=== PATIENT | female | born 1945 | race Caucasian/White ===

== ENCOUNTER 2016-07-29 21:53 | Emergency (ER) | payer MEDICARE, MEDICAID ==
[~2016-07-29] VITALS: Ht 162.6 cm; Wt 75.0 kg
[~2016-07-29 21:53] MED LIST: BENZ0.5T PO; DIVA500T17 PO; ERGO500017 PO; ESCI10TA PO; FERR325T20 PO; HYDR50TA13 PO; LEVO75TA5 PO; LITH300T3 PO; LITH450T PO; LORA0.5T PO; OLAN20TA7 PO; RANI-276 PO; ZOLP10TA PO; ZOLP10TA5 PO
[2016-07-29 21:59] VITALS: BP 126/88
== END 2016-07-30 00:25 | disposition home or self-care (01) ==
LOC: ED 23:59
DX: M25.572 Pain in left ankle and joints of left foot (principal); K21.9 Gastro-esophageal reflux disease without esophagitis; E07.9 Disorder of thyroid, unspecified; I25.10 Atherosclerotic heart disease of native coronary artery without angina pectoris; F20.0 Paranoid schizophrenia; F31.9 Bipolar disorder, unspecified; X50.1XXA Overexertion from prolonged static or awkward postures, initial encounter; Y93.89 Activity, other specified; Y99.8 Other external cause status; Y92.488 Other paved roadways as the place of occurrence of the external cause
CPT/HCPCS: 99284

== ENCOUNTER → 2016-08-01 | Outpatient (CLI) | payer MEDICARE, MEDICAID | END | disposition home or self-care (01) | LOC: CFH 10:35 | PROVIDERS: ATTEND Internal Medicine Cardiovascular Disease | DX: R01.1 Cardiac murmur, unspecified (principal); Z85.828 Personal history of other malignant neoplasm of skin; Z87.891 Personal history of nicotine dependence | CPT/HCPCS: 93306 ==

== ENCOUNTER 2016-08-14 11:46 | Emergency (ER) | payer MEDICARE, MEDICAID ==
[~2016-08-14] VITALS: Ht 162.6 cm; Wt 73.8 kg
[2016-08-14 11:48] VITALS: BP 144/95
[2016-08-14] MEDS ORDERED: LORazepam 1MG TABLET PO ONE (12:30)
[2016-08-14 12:44] LABS: ASPARTATE AMINO TRANSFERASE 11 U/L (15-37); BLOOD UREA NITROGEN 13 mg/dL (7-18)
[2016-08-14 12:56] LABS: ACETAMINOPHEN < 2 mcg/mL (10-30)
[2016-08-14] MEDS ORDERED: LORazepam 1MG TABLET ONE (13:22)
[2016-08-14 14:28] LABS: DAU SCREEN DISCLAIMER
== END 2016-08-14 17:36 | disposition left against medical advice (07) ==
LOC: ED 14:17
DX: F41.1 Generalized anxiety disorder (principal); F22 Delusional disorders; K21.9 Gastro-esophageal reflux disease without esophagitis; F31.9 Bipolar disorder, unspecified; F25.9 Schizoaffective disorder, unspecified; E03.9 Hypothyroidism, unspecified
CPT/HCPCS: 36415; 80053; 80307; 80329; 81003; 84443; 85025; 99284; G0480

== ENCOUNTER 2016-11-07 17:56 | Emergency (ER) | payer MEDICARE, MEDICAID ==
[~2016-11-07] VITALS: Ht 162.6 cm; Wt 74.4 kg
[2016-11-07] MEDS ORDERED: ASPIRIN 81 MG TABLET CHEW PO ONE (18:30)
[2016-11-07 19:07] LABS: BLOOD UREA NITROGEN 13 mg/dL (7-18)
[2016-11-07 19:16] LABS: ACETAMINOPHEN < 2 mcg/mL (10-30); IS PT STATUS REG ER OR PRE ER? YES
[2016-11-07] MEDS ORDERED: ASPIRIN 81 MG TABLET CHEW ONE ×2 (19:48→19:57)
[2016-11-07 19:49] LABS: DAU SCREEN DISCLAIMER
[2016-11-08] MEDS ORDERED: HALOPERIDOL 5 MG/ML IM PRN (02:30)
[2016-11-08] MEDS ORDERED: BENZTROPINE 1 MG TABLET PO PRN (02:30)
[2016-11-08] MEDS ORDERED: LORazepam 1MG TABLET PO PRN (02:30)
[2016-11-08] MEDS ORDERED: ONDANSETRON ODT 4 MG PO PRN (02:30)
[2016-11-08] MEDS ORDERED: LORazepam 0.5MG TABLET PO PRN (04:30)
[2016-11-08] MEDS: FAMOTIDINE 20 MG TABLET PO SCH ×2 (09:00→21:15)
[2016-11-08] MEDS: LEVOTHYROXINE 75 MCG TABLET PO SCH (09:00)
[2016-11-08] MEDS: BENZTROPINE 1 MG TABLET PO SCH ×2 (09:00→21:14)
[2016-11-08] MEDS ORDERED: NICOTINE 14MG/24 HR PATCH.TD24 ONE (15:53)
[2016-11-08] MEDS ORDERED: NICOTINE 14MG/24 HR PATCH.TD24 TD ONE (16:00)
[2016-11-08] MEDS ORDERED: FAMOTIDINE 20 MG TABLET ONE (20:39)
[2016-11-08] MEDS ORDERED: OLANZAPINE 10 MG TABLET PO SCH (21:00)
[2016-11-08] MEDS ORDERED: DIVALPROEX 500 MG TAB.ER.24H PO SCH (21:00)
[2016-11-09] MEDS: TEMPLATE NON-FORMULARY MED. (Escitalopram Oxalate** 10 MG) PO SCH ×2 (06:59→07:57)
[2016-11-09] MEDS: FAMOTIDINE 20 MG TABLET PO SCH (07:57)
[2016-11-09] MEDS: BENZTROPINE 1 MG TABLET PO SCH (07:58)
[2016-11-09] MEDS: LEVOTHYROXINE 75 MCG TABLET PO SCH (07:58)
[2016-11-09 08:42] VITALS: BP 123/80
[2016-11-09] MEDS ORDERED: OLANZAPINE 10 MG TABLET PO PRN (18:00)
[2016-11-09] MEDS ORDERED: OLAN10TA3 PO (18:27)
== END 2016-11-09 18:43 | disposition home or self-care (01) ==
LOC: ED 22:46 → UNDOADMOB 11-08 01:54 → EDIP 11-08 01:54 → ED 11-09 18:43
DX: R07.89 Other chest pain (principal); F32.9 Major depressive disorder, single episode, unspecified; F23 Brief psychotic disorder; F41.1 Generalized anxiety disorder; K21.9 Gastro-esophageal reflux disease without esophagitis; I25.10 Atherosclerotic heart disease of native coronary artery without angina pectoris; E03.9 Hypothyroidism, unspecified; G62.9 Polyneuropathy, unspecified; F20.9 Schizophrenia, unspecified
CPT/HCPCS: 36415; 71010; 80048; 80307; 80329; 81003; 82040; 84484; 85025; 93005; 99285; G0480

== ENCOUNTER 2017-01-30 14:32 | Observation (INO) | payer MEDICARE, MEDICAID ==
[~2017-01-30] VITALS: Ht 162.6 cm; Wt 74.0 kg
[~2017-01-30 14:32] MED LIST changes: +FERR325T18 PO; -FERR325T20 PO; +OLAN10TA3 PO
[2017-01-30 15:45] LABS: HEMATOCRIT 44.6 % (34.6-47.8); HEMOGLOBIN 15.3 g/dL (11.7-16.4); WHITE BLOOD COUNT 6.6 x10^3/uL (3.4-10)
[2017-01-30 15:54] LABS: BLOOD UREA NITROGEN 18 mg/dL (7-18)
[2017-01-30 15:55] LABS: ACETAMINOPHEN < 2 mcg/mL (10-30)
[2017-01-30 16:32] LABS: DAU SCREEN DISCLAIMER
[2017-01-30] MEDS ORDERED: ACETAMINOPHEN 325 MG TABLET PO PRN (21:30)
[2017-01-30] MEDS ORDERED: DOCUSATE 100 MG CAPSULE PO PRN (21:30)
[2017-01-30] MEDS ORDERED: OLANZAPINE 10 MG TABLET PO PRN (22:00)
[2017-01-31] MEDS: ASPIRIN 81 MG TABLET EC PO SCH (13:37)
[2017-01-31 13:41] LABS: IS PT STATUS REG ER OR PRE ER? NO
[2017-01-31] MEDS: NICOTINE 21 MG/24 HR PATCH.TD24 TD SCH (13:43)
[2017-01-31 19:49] VITALS: BP 115/76
[2017-02-01] MEDS: ASPIRIN 81 MG TABLET EC PO SCH (06:31)
[2017-02-01 08:00] VITALS: BP 124/77
[2017-02-01] MEDS ORDERED: LORazepam 0.5MG TABLET PO PRN (12:30)
[2017-02-01] MEDS ORDERED: LEVOTHYROXINE 75 MCG TABLET PO SCH (12:30)
[2017-02-01] MEDS ORDERED: ERGOCALCIFEROL 50,000 UNIT CAPSULE PO SCH (13:00)
[2017-02-01] MEDS: TEMPLATE NON-FORMULARY MED. (Escitalopram Oxalate** 10 MG) PO SCH (13:00)
[2017-02-01] MEDS: NICOTINE 21 MG/24 HR PATCH.TD24 TD SCH (14:46)
[2017-02-01] MEDS: LORazepam 0.5MG TABLET PO PRN ×2 (14:46→21:49)
[2017-02-01 20:00] VITALS: BP 126/87
[2017-02-01] MEDS ORDERED: BENZTROPINE 1 MG TABLET PO SCH (21:00)
[2017-02-01] MEDS: OLANZAPINE 10 MG TABLET PO SCH (21:49)
[2017-02-01] MEDS: DIVALPROEX 500 MG TAB.ER.24H PO SCH (21:49)
[2017-02-02] MEDS: LEVOTHYROXINE 75 MCG TABLET PO SCH ×2 (05:50→09:00)
[2017-02-02] MEDS: ASPIRIN 81 MG TABLET EC PO SCH (05:50)
[2017-02-02 07:30] VITALS: BP 109/75
[2017-02-02] MEDS: TEMPLATE NON-FORMULARY MED. (Escitalopram Oxalate** 10 MG) PO SCH (07:30)
[2017-02-02] MEDS: BENZTROPINE 1 MG TABLET PO SCH ×2 (08:48→21:48)
[2017-02-02] MEDS: LORazepam 0.5MG TABLET PO PRN ×2 (11:13→21:49)
[2017-02-02] MEDS: NICOTINE 21 MG/24 HR PATCH.TD24 TD SCH (14:24)
[2017-02-02 20:00] VITALS: BP 93/68
[2017-02-02] MEDS: OLANZAPINE 10 MG TABLET PO SCH (21:48)
[2017-02-02] MEDS: DIVALPROEX 500 MG TAB.ER.24H PO SCH (21:49)
[2017-02-03] MEDS: ASPIRIN 81 MG TABLET EC PO SCH (06:06)
[2017-02-03 07:26] VITALS: BP 124/88
[2017-02-03] MEDS: TEMPLATE NON-FORMULARY MED. (Escitalopram Oxalate** 10 MG) PO SCH (07:30)
[2017-02-03] MEDS: LEVOTHYROXINE 75 MCG TABLET PO SCH (08:28)
[2017-02-03] MEDS: BENZTROPINE 1 MG TABLET PO SCH ×2 (08:28→20:30)
[2017-02-03] MEDS ORDERED: TEMPLATE NON-FORMULARY MED. (Escitalopram Oxalate** 10 MG) HOMEMEDPO SCH (10:36)
[2017-02-03] MEDS: LORazepam 0.5MG TABLET PO PRN ×2 (12:27→20:31)
[2017-02-03] MEDS: NICOTINE 21 MG/24 HR PATCH.TD24 TD SCH (14:11)
[2017-02-03] MEDS ORDERED: PLEASE ENTER WEIGHT MC SCH (18:30)
[2017-02-03 19:29] VITALS: BP 102/71
[2017-02-03] MEDS ORDERED: DOCUSATE 100 MG CAPSULE PO PRN (20:30)
[2017-02-03] MEDS: DIVALPROEX 500 MG TAB.ER.24H PO SCH (20:30)
[2017-02-03] MEDS: OLANZAPINE 10 MG TABLET PO SCH (20:30)
[2017-02-03] MEDS ORDERED: ACETAMINOPHEN 325 MG TABLET PO PRN (20:30)
[2017-02-03] MEDS ORDERED: OLANZAPINE 10 MG TABLET PO PRN (20:30)
[2017-02-04] MEDS: ASPIRIN 81 MG TABLET EC PO SCH (06:27)
[2017-02-04] MEDS: LEVOTHYROXINE 75 MCG TABLET PO SCH (06:28)
[2017-02-04] MEDS: TEMPLATE NON-FORMULARY MED. (Escitalopram Oxalate** 20 MG) HOMEMEDPO SCH (07:30)
[2017-02-04 08:11] VITALS: BP 116/74
[2017-02-04] MEDS: BENZTROPINE 1 MG TABLET PO SCH ×2 (08:32→20:29)
[2017-02-04] MEDS: LORATADINE 10 MG TABLET PO SCH (08:32)
[2017-02-04] MEDS ORDERED: LORATADINE 10 MG TABLET PO SCH (09:00)
[2017-02-04] MEDS: NICOTINE 21 MG/24 HR PATCH.TD24 TD SCH (15:02)
[2017-02-04] MEDS: LORazepam 0.5MG TABLET PO PRN ×2 (15:08→22:31)
[2017-02-04] MEDS: DIVALPROEX 500 MG TAB.ER.24H PO SCH (20:28)
[2017-02-04] MEDS: OLANZAPINE 10 MG TABLET PO SCH (20:29)
[2017-02-04 20:38] VITALS: BP 122/83
[2017-02-05] MEDS: LEVOTHYROXINE 75 MCG TABLET PO SCH (06:01)
[2017-02-05] MEDS: ASPIRIN 81 MG TABLET EC PO SCH (06:03)
[2017-02-05 07:22] VITALS: BP 119/87
[2017-02-05] MEDS: TEMPLATE NON-FORMULARY MED. (Escitalopram Oxalate** 20 MG) HOMEMEDPO SCH (07:30)
[2017-02-05] MEDS: BENZTROPINE 1 MG TABLET PO SCH ×2 (07:54→21:40)
[2017-02-05] MEDS: LORATADINE 10 MG TABLET PO SCH (07:54)
[2017-02-05] MEDS: NICOTINE 21 MG/24 HR PATCH.TD24 TD SCH (14:11)
[2017-02-05] MEDS: LORazepam 0.5MG TABLET PO PRN ×2 (14:15→21:40)
[2017-02-05 19:19] VITALS: BP 100/64
[2017-02-05] MEDS: DIVALPROEX 500 MG TAB.ER.24H PO SCH (21:40)
[2017-02-05] MEDS: OLANZAPINE 10 MG TABLET PO SCH (21:40)
[2017-02-06] MEDS: ASPIRIN 81 MG TABLET EC PO SCH (06:25)
[2017-02-06] MEDS: LEVOTHYROXINE 75 MCG TABLET PO SCH (06:25)
[2017-02-06] MEDS: TEMPLATE NON-FORMULARY MED. (Escitalopram Oxalate** 20 MG) HOMEMEDPO SCH (07:30)
[2017-02-06 08:00] VITALS: BP 109/76
[2017-02-06] MEDS: LORATADINE 10 MG TABLET PO SCH (08:18)
[2017-02-06] MEDS: BENZTROPINE 1 MG TABLET PO SCH ×2 (08:18→20:55)
[2017-02-06] MEDS: NICOTINE 21 MG/24 HR PATCH.TD24 TD SCH (14:16)
[2017-02-06] MEDS: LORazepam 0.5MG TABLET PO PRN ×2 (14:24→22:33)
[2017-02-06 20:07] VITALS: BP 90/57
[2017-02-06] MEDS: DIVALPROEX 500 MG TAB.ER.24H PO SCH (20:55)
[2017-02-06] MEDS: OLANZAPINE 10 MG TABLET PO SCH (20:56)
[2017-02-07] MEDS: ASPIRIN 81 MG TABLET EC PO SCH (06:26)
[2017-02-07] MEDS: LEVOTHYROXINE 75 MCG TABLET PO SCH (06:26)
[2017-02-07 07:19] VITALS: BP 113/80
[2017-02-07] MEDS: TEMPLATE NON-FORMULARY MED. (Escitalopram Oxalate** 20 MG) HOMEMEDPO SCH (07:30)
[2017-02-07] MEDS: BENZTROPINE 1 MG TABLET PO SCH (07:55)
[2017-02-07] MEDS: LORATADINE 10 MG TABLET PO SCH (07:55)
[2017-02-07] MEDS: NICOTINE 21 MG/24 HR PATCH.TD24 TD SCH (14:00)
== END 2017-02-07 15:23 | disposition home or self-care (01) ==
LOC: ED 18:07 → EDIP 20:40 → 3E 01-31 10:05
PROVIDERS: ADMIT Hospitalist; ATTEND Hospitalist
DX: R45.851 Suicidal ideations (principal); F31.9 Bipolar disorder, unspecified; I25.10 Atherosclerotic heart disease of native coronary artery without angina pectoris; E03.9 Hypothyroidism, unspecified; F20.0 Paranoid schizophrenia; F17.210 Nicotine dependence, cigarettes, uncomplicated; K21.9 Gastro-esophageal reflux disease without esophagitis; Z82.49 Family history of ischemic heart disease and other diseases of the circulatory system; Z95.5 Presence of coronary angioplasty implant and graft
CPT/HCPCS: 36415; 71010; 80048; 80307; 80329; 82040; 84439; 84443; 84484; 85025; 93005; 99285; G0378; G0479; G0480

== ENCOUNTER 2017-03-23 15:04 | Emergency (ER) | payer MEDICARE, MEDICAID ==
[2017-03-23 16:02] LABS: DAU SCREEN DISCLAIMER
[2017-03-23 16:18] LABS: HEMATOCRIT 43.1 % (34.6-47.8); HEMOGLOBIN 14.7 g/dL (11.7-16.4); WHITE BLOOD COUNT 8.2 x10^3/uL (3.4-10)
[2017-03-23 16:25] LABS: BLOOD UREA NITROGEN 14 mg/dL (7-18)
[2017-03-23 16:27] LABS: ACETAMINOPHEN < 2 mcg/mL (10-30)
[2017-03-23 23:45] VITALS: BP 130/88
== END 2017-03-23 23:46 | disposition home or self-care (01) ==
LOC: ED 18:10
DX: F43.21 Adjustment disorder with depressed mood (principal); K21.9 Gastro-esophageal reflux disease without esophagitis; E03.9 Hypothyroidism, unspecified; I25.10 Atherosclerotic heart disease of native coronary artery without angina pectoris
CPT/HCPCS: 36415; 80048; 80307; 80329; 82040; 85025; 99284; G0479; G0480

== ENCOUNTER 2017-04-01 20:37 | Emergency (ER) | payer MEDICARE, MEDICAID ==
[~2017-04-01] VITALS: Ht 162.6 cm; Wt 75.7 kg
[2017-04-01 20:39] VITALS: BP 162/90
== END 2017-04-01 21:39 | disposition home or self-care (01) ==
LOC: ED 21:00
DX: G89.29 Other chronic pain (principal); M79.642 Pain in left hand; M79.641 Pain in right hand; M79.645 Pain in left finger(s); M79.644 Pain in right finger(s); K21.9 Gastro-esophageal reflux disease without esophagitis; E03.9 Hypothyroidism, unspecified; F25.9 Schizoaffective disorder, unspecified; F31.9 Bipolar disorder, unspecified; G62.9 Polyneuropathy, unspecified; I25.10 Atherosclerotic heart disease of native coronary artery without angina pectoris; F20.0 Paranoid schizophrenia
CPT/HCPCS: 99281

== ENCOUNTER 2017-04-10 17:02 | Emergency (ER) | payer MEDICARE, MEDICAID ==
[~2017-04-10] VITALS: Ht 162.6 cm; Wt 74.4 kg
[2017-04-10 18:33] LABS: BASOPHILS # (AUTO) 0.04 x10^3/uL (0-0.1); BASOPHILS % (AUTO) 1 % (0-1); EOSINOPHILS # (AUTO) 0.12 x10^3/uL (0-0.4); EOSINOPHILS % (AUTO) 2 % (1-7); LYMPHOCYTES # (AUTO) 2.29 x10^3/uL (1-3.4); LYMPHOCYTES % (AUTO) 38 % (22-44); MD NO; MEAN CORPUSCULAR HEMOGLOBIN 31.4 pg (27.0-34.8); MEAN CORPUSCULAR HGB CONC 33.8 g/dL (32.4-35.8); MEAN CORPUSCULAR VOLUME 92.7 fL (80-100); MEAN PLATELET VOLUME 7.8 fL (7.4-10.4); MONOCYTES # (AUTO) 0.79 x10^3/uL (0.2-0.8); MONOCYTES % (AUTO) 13 % (2-9); NEUTROPHILS # (AUTO) 2.85 x10^3/uL (1.8-6.8); NEUTROPHILS % (AUTO) 47 % (42-75); PLATELET COUNT 220 x10^3/uL (130-400); RED BLOOD COUNT 4.97 x10^6/uL (3.82-5.3); RED CELL DISTRIBUTION WIDTH 15.2 % (9.6-15.2)
[2017-04-10 18:39] LABS: ALBUMIN 3.3 g/dL (3.4-5.0); ANION GAP 8 mmol/L (5-15); CHLORIDE 110 mmol/L (98-107); CREATININE 1.23 mg/dL (0.55-1.02); SALICYLATE LEVEL 4.9 mg/dL (2.8-20.0)
[2017-04-10 18:46] LABS: ACETAMINOPHEN < 2 mcg/mL (10-30)
[2017-04-10] MEDS ORDERED: ALPR0.25 PO (18:50)
[2017-04-10] MEDS ORDERED: LORA-445 PO (18:51)
[2017-04-10] MEDS ORDERED: BISA5TAB38 PO (18:52)
[2017-04-10] MEDS ORDERED: ESCI5TAB7 PO (18:53)
[2017-04-10 19:12] LABS: AMPHETAMINE SCREEN, URINE Negative (Negative); BARBITURATE SCREEN, URINE Negative (Negative); BENZODIAZEPINE SCREEN, URINE Negative (Negative); CANNABINOID SCREEN, URINE Negative (Negative); COCAINE SCREEN, URINE Negative (Negative); METHADONE SCREEN, URINE Negative (Negative); OPIATE SCREEN, URINE Negative (Negative)
[2017-04-10] MEDS ORDERED: ACETAMINOPHEN 325 MG TABLET PO PRN (21:00)
[2017-04-10] MEDS ORDERED: ONDANSETRON ODT 4 MG PO PRN (21:00)
[2017-04-10] MEDS ORDERED: LORazepam 1MG TABLET PO PRN (21:00)
[2017-04-10] MEDS ORDERED: OLANZAPINE 10 MG TABLET PO PRN (21:00)
[2017-04-10] MEDS ORDERED: ERGOCALCIFEROL 50,000 UNIT CAPSULE PO SCH (21:00)
[2017-04-10] MEDS ORDERED: LORazepam 0.5MG TABLET ONE (22:29)
[2017-04-10] MEDS: DIVALPROEX 500 MG TAB.ER.24H PO SCH (22:50)
[2017-04-10] MEDS: LORazepam 0.5MG TABLET PO SCH (22:50)
[2017-04-10] MEDS: BENZTROPINE 1 MG TABLET PO SCH (22:51)
[2017-04-11] MEDS ORDERED: KETOROLAC 30 MG/1 ML ONE (06:11)
[2017-04-11] MEDS ORDERED: CITALOPRAM 10 MG TABLET PO SCH (09:00)
[2017-04-11] MEDS ORDERED: BISACODYL 5 MG EC TABLET PO SCH (09:00)
[2017-04-11] MEDS ORDERED: LORazepam 0.5MG TABLET ONE (19:17)
[2017-04-11] MEDS: LORazepam 0.5MG TABLET PO SCH ×2 (20:37→21:00)
[2017-04-11] MEDS: BENZTROPINE 1 MG TABLET PO SCH ×2 (20:37→21:00)
[2017-04-11] MEDS: LEVOTHYROXINE 75 MCG TABLET PO SCH (20:37)
[2017-04-12] MEDS: DIVALPROEX 500 MG TAB.ER.24H PO SCH (02:11)
[2017-04-12] MEDS: LEVOTHYROXINE 75 MCG TABLET PO SCH (06:13)
[2017-04-12] MEDS ORDERED: BACITRACIN ZINC OINT 500U/GM, 0.9 GM ONE (07:18)
[2017-04-12] MEDS ORDERED: LORazepam 0.5MG TABLET ONE (08:35)
[2017-04-12] MEDS: LORazepam 0.5MG TABLET PO SCH (08:53)
[2017-04-12] MEDS: BENZTROPINE 1 MG TABLET PO SCH (08:53)
[2017-04-12] MEDS ORDERED: LEXAPRO 5 MG PO SCH (09:00)
[2017-04-12] MEDS ORDERED: NICOTINE 21 MG/24 HR PATCH.TD24 ONE (09:03)
[2017-04-12] MEDS ORDERED: NICOTINE 21 MG/24 HR PATCH.TD24 TD ONE (09:30)
[2017-04-12 10:45] VITALS: BP 116/84
== END 2017-04-12 15:16 ==
LOC: ED 20:10 → UNDOADMOB 20:11 → EDIP 20:11 → ED 20:38
DX: F32.9 Major depressive disorder, single episode, unspecified (principal); F20.9 Schizophrenia, unspecified; E03.9 Hypothyroidism, unspecified; I25.10 Atherosclerotic heart disease of native coronary artery without angina pectoris; K21.9 Gastro-esophageal reflux disease without esophagitis; Z95.5 Presence of coronary angioplasty implant and graft
CPT/HCPCS: 36415; 80048; 80307; 80329; 82040; 84443; 85025; 99285; G0479; G0480

== ENCOUNTER 2018-01-06 19:14 | Emergency (ER) | payer MEDICARE, MEDICAID ==
[~2018-01-06] VITALS: Ht 162.6 cm; Wt 74.1 kg
[~2018-01-06 19:14] MED LIST changes: +ALPR0.25 PO; -BENZ0.5T PO; +BENZ0.5T35 PO; +BISA5TAB38 PO; +ESCI5TAB7 PO; +LORA-445 PO
[2018-01-06] MEDS ORDERED: KETOROLAC 30 MG/1 ML ONE (19:42)
[2018-01-06] MEDS ORDERED: ASPIRIN 81 MG TABLET CHEW ONE (19:42)
[2018-01-06] MEDS ORDERED: ASPIRIN 81 MG TABLET CHEW PO ONE (20:00)
[2018-01-06] MEDS ORDERED: KETOROLAC 30 MG/1 ML IVPush ONE (20:00)
[2018-01-06] MEDS ORDERED: SODIUM CHLORIDE FLUSH 10ML SYR IVF ONE (20:00)
[2018-01-06 20:14] LABS: BASOPHILS # (AUTO) 0.04 x10^3/uL (0-0.1); BASOPHILS % (AUTO) 1 % (0-1); EOSINOPHILS # (AUTO) 0.08 x10^3/uL (0-0.4); EOSINOPHILS % (AUTO) 1 % (1-7); LYMPHOCYTES # (AUTO) 2.37 x10^3/uL (1-3.4); LYMPHOCYTES % (AUTO) 32 % (22-44); MD NO; MEAN CORPUSCULAR HEMOGLOBIN 31.7 pg (27.0-34.8); MEAN CORPUSCULAR HGB CONC 34.2 g/dL (32.4-35.8); MEAN CORPUSCULAR VOLUME 92.4 fL (80-100); MEAN PLATELET VOLUME 7.4 fL (7.4-10.4); MONOCYTES # (AUTO) 0.84 x10^3/uL (0.2-0.8); MONOCYTES % (AUTO) 12 % (2-9); NEUTROPHILS # (AUTO) 3.99 x10^3/uL (1.8-6.8); NEUTROPHILS % (AUTO) 55 % (42-75); PLATELET COUNT 196 x10^3/uL (130-400); RED BLOOD COUNT 4.65 x10^6/uL (3.82-5.3); RED CELL DISTRIBUTION WIDTH 16.2 % (9.6-15.2)
[2018-01-06 20:26] LABS: ALANINE AMINOTRANSFERASE 16 U/L (12-78); ALBUMIN 3.2 g/dL (3.4-5.0); ANION GAP 10 mmol/L (5-15); CHLORIDE 106 mmol/L (98-107); CREATININE 1.12 mg/dL (0.55-1.02)
[2018-01-06 20:30] LABS: ALKALINE PHOSPHATASE 83 U/L (45-117); BILIRUBIN,TOTAL 0.5 mg/dL (0.2-1.0); TOTAL PROTEIN 6.7 g/dL (6.4-8.2); TROPONIN I < 0.015 ng/mL (0.000-0.045)
[2018-01-06 21:22] VITALS: BP 113/74
== END 2018-01-06 21:24 | disposition left against medical advice (07) ==
LOC: ED 19:46
DX: R07.2 Precordial pain (principal); F17.200 Nicotine dependence, unspecified, uncomplicated; K21.9 Gastro-esophageal reflux disease without esophagitis; F31.9 Bipolar disorder, unspecified; F20.9 Schizophrenia, unspecified; E03.9 Hypothyroidism, unspecified; Z88.8 Allergy status to other drugs, medicaments and biological substances; Z88.1 Allergy status to other antibiotic agents
CPT/HCPCS: 36415; 71045; 80053; 84484; 85025; 85379; 93005; 96374; 99285; J1885

== ENCOUNTER 2018-01-20 18:20 | Emergency (ER) | payer MEDICARE, MEDICAID ==
[~2018-01-20] VITALS: Ht 162.6 cm; Wt 74.0 kg
[2018-01-20 18:25] VITALS: BP 125/81
== END 2018-01-20 19:27 | disposition home or self-care (01) ==
LOC: ED 19:21
DX: G89.11 Acute pain due to trauma (principal); M25.561 Pain in right knee; E11.9 Type 2 diabetes mellitus without complications; K21.9 Gastro-esophageal reflux disease without esophagitis; I25.10 Atherosclerotic heart disease of native coronary artery without angina pectoris; I25.2 Old myocardial infarction; E03.9 Hypothyroidism, unspecified; F31.9 Bipolar disorder, unspecified; F20.0 Paranoid schizophrenia; F17.210 Nicotine dependence, cigarettes, uncomplicated; X50.1XXA Overexertion from prolonged static or awkward postures, initial encounter; Y93.89 Activity, other specified; Y99.8 Other external cause status; Y92.89 Other specified places as the place of occurrence of the external cause
CPT/HCPCS: 99283

== ENCOUNTER 2018-02-12 21:02 | Emergency (ER) | payer MEDICARE, MEDICAID ==
[~2018-02-12] VITALS: Ht 162.6 cm; Wt 70.0 kg
[2018-02-12 21:02] VITALS: BP 150/73
== END 2018-02-12 21:34 | disposition home or self-care (01) ==
LOC: ED 21:28
DX: M79.671 Pain in right foot (principal); E11.9 Type 2 diabetes mellitus without complications
CPT/HCPCS: 99283

== ENCOUNTER 2018-03-09 15:40 | Emergency (ER) | payer MEDICARE, MEDICAID ==
[~2018-03-09] VITALS: Ht 144.8 cm; Wt 75.9 kg
[2018-03-09] MEDS ORDERED: ASPIRIN 81 MG TABLET CHEW PO ONE (16:00)
[2018-03-09 16:11] LABS: BASOPHILS # (AUTO) 0.04 x10^3/uL (0-0.1); BASOPHILS % (AUTO) 1 % (0-1); EOSINOPHILS # (AUTO) 0.07 x10^3/uL (0-0.4); EOSINOPHILS % (AUTO) 1 % (1-7); LYMPHOCYTES % (AUTO) 31 % (22-44); MD NO; MEAN CORPUSCULAR HEMOGLOBIN 31.9 pg (27.0-34.8); MEAN CORPUSCULAR VOLUME 93.8 fL (80-100); MEAN PLATELET VOLUME 7.4 fL (7.4-10.4); MONOCYTES # (AUTO) 1.01 x10^3/uL (0.2-0.8); MONOCYTES % (AUTO) 13 % (2-9); NEUTROPHILS # (AUTO) 4.14 x10^3/uL (1.8-6.8); NEUTROPHILS % (AUTO) 54 % (42-75); PLATELET COUNT 202 x10^3/uL (130-400); RED BLOOD COUNT 4.66 x10^6/uL (3.82-5.3); RED CELL DISTRIBUTION WIDTH 15.9 % (9.6-15.2)
[2018-03-09 16:21] LABS: ALANINE AMINOTRANSFERASE 16 U/L (12-78); ALBUMIN 3.2 g/dL (3.4-5.0); ANION GAP 8 mmol/L (5-15); CALCIUM 8.8 mg/dL (8.5-10.1); CHLORIDE 108 mmol/L (98-107); CREATININE 1.14 mg/dL (0.55-1.02)
[2018-03-09 16:25] LABS: ALKALINE PHOSPHATASE 85 U/L (45-117); BILIRUBIN,TOTAL 0.4 mg/dL (0.2-1.0); TOTAL PROTEIN 6.6 g/dL (6.4-8.2); TROPONIN I < 0.015 ng/mL (0.000-0.045)
[2018-03-09] MEDS ORDERED: ASPIRIN 81 MG TABLET CHEW ONE (16:34)
[2018-03-09] MEDS ORDERED: TRAZ-136 PO (16:50)
[2018-03-09] MEDS ORDERED: GABA300C10 PO (16:50)
[2018-03-09] MEDS ORDERED: ALBU8.5H8 INH (16:50)
[2018-03-09] MEDS ORDERED: FLUT1DIS IH (16:50)
[2018-03-09] MEDS ORDERED: ATOR40TA78 PO (16:50)
[2018-03-09 17:30] VITALS: BP 136/76
== END 2018-03-09 18:46 | disposition home or self-care (01) ==
LOC: ED 17:00
DX: R07.89 Other chest pain (principal); F17.200 Nicotine dependence, unspecified, uncomplicated; E11.9 Type 2 diabetes mellitus without complications; K21.9 Gastro-esophageal reflux disease without esophagitis; I25.10 Atherosclerotic heart disease of native coronary artery without angina pectoris; E03.9 Hypothyroidism, unspecified
CPT/HCPCS: 36415; 71045; 80053; 84484; 85025; 93005; 99284

== ENCOUNTER 2018-04-29 17:52 | Emergency (ER) | payer MEDICARE, MEDICAID ==
[~2018-04-29] VITALS: Ht 162.6 cm; Wt 77.3 kg
[~2018-04-29 17:52] MED LIST changes: +ALBU8.5H8 INH; +ATOR40TA78 PO; +FLUT1DIS IH; +GABA300C10 PO; -RANI-276 PO; +RANI-448 PO; +TRAZ50TA66 PO
--- NOTE | 2018-04-29 18:05 | NUR ---
PT BROUGHT IN BY EMS WITH C/O 8/10 CHEST PAIN, ABDOMINAL PAIN, AND BACK PAIN. PT IS POOR HISTORIAN. GABRIEL. PT IS AOX4, UNLABORED RESPIRATIONS EQUAL BILATERALLY, AND SKIN IS PINK, WARM, AND DRY. PT HAS HISTORY OF SCHIZOPHRENIA, BIPOLAR, DEPRESSION, HTN, HIGH CHOLESTEROL, ANXIETY, AND "MINI SEIZURES" PER PT. PT CONNECTED TO ALL MONITORS. CAR CLERK PULLMAN AT BEDSIDE GETTING EKG. ALL SAFETY MEASURES IN PLACE. NO NEEDS EXPRESSED AT THIS TIME. CALL LIGHT WITHIN REACH.
--- NOTE | 2018-04-29 19:06 | NUR ---
PROVIDED BEDSIDE REPORT TO JULIETA MARROQUIN. ALL QUESTIONS ANSWERED.
--- NOTE | 2018-04-29 19:21 | NUR ---
RECEIVED BEDSIDE REPORT FROM KARISSA RENDON. CARE ASSUMED. ASSESSMENT COMPLETED. PT RESTING IN POSITION OF COMFORT. DENIES ANY CP, SOB. RATES BACK AND ABD PAIN 2/10 "IT'S NOT BAD, I DO NEED TO PEE THOUGH AND I THINK THEY PAIN WILL GO AWAY, MY BLADDER IS FULL." PT STATES "I'VE JUST BEEN FEELING ANXIOUS MAYBE, EVER SINCE MY DOCTOR TOLD ME I HAVE A HEART MURMUR AND WILL NEED OPEN HEART SURGERY." PT CALM AND COOPERATIVE. SR ON MONITOR, ALL MONITORS IN PLACE. VSS. CALL LIGHT IN REACH. FALL PRECAUTIONS IN PLACE. SIDE RAILS UPX2.
--- NOTE | 2018-04-29 19:34 | NUR ---
PT AMBULATED TO RESTROOM WITH STEADY GAIT. BACK TO ROOM, RESTING IN POSITION OF COMFORT ON GURNEY. WARM BLANKET PROVIDED FOR COMFORT. VSS. CALL LIGHT IN REACH.
--- NOTE | 2018-04-29 19:34 | NUR ---
PT UP FOR RECHECK
[2018-04-29 19:38] VITALS: BP 126/77
== END 2018-04-29 19:54 | disposition home or self-care (01) ==
LOC: ED 19:36
DX: R07.89 Other chest pain (principal); I25.10 Atherosclerotic heart disease of native coronary artery without angina pectoris; I10 Essential (primary) hypertension; E03.9 Hypothyroidism, unspecified; G40.909 Epilepsy, unspecified, not intractable, without status epilepticus; F31.9 Bipolar disorder, unspecified; K21.9 Gastro-esophageal reflux disease without esophagitis; F41.1 Generalized anxiety disorder
CPT/HCPCS: 36415; 84484; 93005; 99284

== ENCOUNTER 2018-05-18 18:14 | Emergency (ER) | payer MEDICARE, MEDICAID ==
[~2018-05-18] VITALS: Ht 162.6 cm; Wt 74.6 kg
[2018-05-18 18:23] VITALS: BP 122/82
--- NOTE | 2018-05-18 19:22 | NUR ---
PT AMBULATORY TO RESTROOM, STEADY GAIT NOTED. URINE SAMPLE PROVIDED AND SENT TO LAB. PT BACK TO BED WITHOUT DIFFICULTY. SITTER OUTSIDE DOOR. ROOM REMAINS SECURE. PT CALM AND COOPERATIVE AT THIS TIME.
[2018-05-18 19:46] LABS: MICROSCOPIC NOT IND
[2018-05-18 19:50] LABS: CULTURE INDICATED? NO
[2018-05-18 19:52] LABS: BASOPHILS # (AUTO) 0.05 x10^3/uL (0-0.1); BASOPHILS % (AUTO) 1 % (0-1); EOSINOPHILS # (AUTO) 0.12 x10^3/uL (0-0.4); EOSINOPHILS % (AUTO) 2 % (1-7); LYMPHOCYTES % (AUTO) 39 % (22-44); MD NO; MEAN CORPUSCULAR HEMOGLOBIN 31.9 pg (27.0-34.8); MEAN CORPUSCULAR VOLUME 93.8 fL (80-100); MEAN PLATELET VOLUME 7.7 fL (7.4-10.4); MONOCYTES # (AUTO) 0.79 x10^3/uL (0.2-0.8); MONOCYTES % (AUTO) 14 % (2-9); NEUTROPHILS # (AUTO) 2.61 x10^3/uL (1.8-6.8); NEUTROPHILS % (AUTO) 44 % (42-75); PLATELET COUNT 178 x10^3/uL (130-400); RED CELL DISTRIBUTION WIDTH 14.8 % (9.6-15.2)
[2018-05-18 19:55] LABS: ALBUMIN 3.1 g/dL (3.4-5.0); ANION GAP 8 mmol/L (5-15); CALCIUM 8.9 mg/dL (8.5-10.1); CHLORIDE 109 mmol/L (98-107)
[2018-05-18 19:59] LABS: AMPHETAMINE SCREEN, URINE Negative (Negative); BARBITURATE SCREEN, URINE Negative (Negative); BENZODIAZEPINE SCREEN, URINE Negative (Negative); CANNABINOID SCREEN, URINE Negative (Negative); COCAINE SCREEN, URINE Negative (Negative); METHADONE SCREEN, URINE Negative (Negative); OPIATE SCREEN, URINE Negative (Negative)
[2018-05-18 20:00] LABS: ACETAMINOPHEN < 2 mcg/mL (10-30); ALANINE AMINOTRANSFERASE 15 U/L (12-78); ALKALINE PHOSPHATASE 90 U/L (45-117); BILIRUBIN,TOTAL 0.5 mg/dL (0.2-1.0); CREATININE 1.17 mg/dL (0.55-1.02); SALICYLATE LEVEL 3.7 mg/dL (2.8-20.0); TOTAL PROTEIN 6.2 g/dL (6.4-8.2)
--- NOTE | 2018-05-18 20:10 | NUR ---
Pt appears to be sleeping, bilateral resp noted, sitter remains at door watching PT
--- NOTE | 2018-05-18 21:27 | NUR ---
3E RN called states they would like to take PT, RN will come down and discuss voluntary admission with patient.
--- NOTE | 2018-05-18 21:53 | NUR ---
Pt on legal hold, transfered to for admit. Pt calm, cooperative upon transfer of care.
== END 2018-05-18 21:54 | disposition home or self-care (01) ==
LOC: ED 20:13 → EDIP 21:34 → UNDOADMOB 21:34 → EDIP 21:54
DX: F29 Unspecified psychosis not due to a substance or known physiological condition (principal); F25.9 Schizoaffective disorder, unspecified; F31.9 Bipolar disorder, unspecified; K21.9 Gastro-esophageal reflux disease without esophagitis; F41.1 Generalized anxiety disorder; I10 Essential (primary) hypertension; E11.9 Type 2 diabetes mellitus without complications; E03.9 Hypothyroidism, unspecified; Z72.9 Problem related to lifestyle, unspecified; I25.10 Atherosclerotic heart disease of native coronary artery without angina pectoris
CPT/HCPCS: 36415; 80053; 80307; 80329; 81003; 82140; 85025; 99284; G0480

== ENCOUNTER 2018-05-18 21:30 | Inpatient (IN) | payer MEDICARE, MEDICAID ==
[~2018-05-18] VITALS: Ht 162.6 cm; Wt 71.8 kg
[2018-05-18] MEDS: GABAPENTIN 300 MG CAPSULE PO SCH (22:30)
[2018-05-18] MEDS: DIVALPROEX 500 MG TAB.ER.24H PO SCH (22:30)
[2018-05-18] MEDS ORDERED: BISACODYL 10 MG SUPP PR PRN (22:30)
[2018-05-18] MEDS ORDERED: DOCUSATE 100 MG CAPSULE PO PRN (22:30)
[2018-05-18] MEDS ORDERED: LORazepam 0.5MG TABLET PO PRN (22:30)
[2018-05-18] MEDS: ATORVASTATIN 40 MG TABLET PO SCH (22:30)
[2018-05-18] MEDS: BENZTROPINE 1 MG TABLET PO SCH (22:30)
[2018-05-18] MEDS ORDERED: OLANZAPINE 10 MG TABLET PO PRN (22:30)
[2018-05-18] MEDS: TRAZODONE 100MG TABLET PO SCH (22:30)
[2018-05-18 22:33] VITALS: BP 117/62
[2018-05-19] MEDS ORDERED: ALBUTEROL SULFATE 2.5 MG/3 ML NPPB PRN
[2018-05-19 05:31] LABS: ANION GAP 6 mmol/L (5-15); CALCIUM 9.1 mg/dL (8.5-10.1); CHLORIDE 114 mmol/L (98-107); CHOLESTEROL, TOTAL 107 mg/dL (140-239); CREATININE 1.14 mg/dL (0.55-1.02)
[2018-05-19 05:57] LABS: CHOL/HDL RATIO 1.9; FREE T4 (FREE THYROXINE) 1.22 ng/dL (0.76-1.46); HDL CHOL % 51 % (28-40); HDL CHOLESTEROL (DIRECT) 55 mg/dL (40-60); LDL CHOLESTEROL,CALCULATED 38 mg/dL (54-169); LDL/HDL RATIO 0.7 (0.5-3.0); THYROID STIMULATING HORMONE 0.501 mIU/L (0.358-3.740); TRIGLYCERIDES 70 mg/dL (50-200); VLDL CHOLESTEROL 14 mg/dL (0-25)
[2018-05-19] MEDS: LEVOTHYROXINE 75 MCG TABLET PO SCH (06:00)
[2018-05-19 07:28] VITALS: BP 143/81
[2018-05-19] MEDS: BENZTROPINE 1 MG TABLET PO SCH ×2 (09:35→22:25)
[2018-05-19] MEDS: GABAPENTIN 300 MG CAPSULE PO SCH ×2 (09:35→22:25)
[2018-05-19] MEDS: ACETAMINOPHEN 325 MG TABLET PO PRN (11:11)
[2018-05-19] MEDS: LACTULOSE 20 GM/30 ML UDC PO SCH ×2 (11:49→22:29)
[2018-05-19] MEDS ORDERED: ERGOCALCIFEROL 50,000 UNIT CAPSULE PO SCH (12:00)
[2018-05-19 20:04] VITALS: BP 109/70
[2018-05-19] MEDS ORDERED: GABAPENTIN 100 MG CAPSULE PO SCH (21:00)
[2018-05-19] MEDS: ATORVASTATIN 40 MG TABLET PO SCH (22:25)
[2018-05-19] MEDS: DIVALPROEX 500 MG TAB.ER.24H PO SCH (22:26)
[2018-05-19] MEDS: TRAZODONE 100MG TABLET PO SCH (22:26)
[2018-05-20] MEDS: LEVOTHYROXINE 75 MCG TABLET PO SCH (05:40)
[2018-05-20 07:50] VITALS: BP 122/80
[2018-05-20] MEDS: GABAPENTIN 300 MG CAPSULE PO SCH ×2 (08:59→21:08)
[2018-05-20] MEDS: LACTULOSE 20 GM/30 ML UDC PO SCH ×2 (09:01→21:08)
[2018-05-20] MEDS: BENZTROPINE 1 MG TABLET PO SCH ×2 (09:01→21:08)
[2018-05-20] MEDS ORDERED: NICOTINE 14MG/24 HR PATCH.TD24 TD ONE (17:30)
[2018-05-20 19:54] VITALS: BP 96/63
[2018-05-20] MEDS: TRAZODONE 100MG TABLET PO SCH (21:08)
[2018-05-20] MEDS: ATORVASTATIN 40 MG TABLET PO SCH (21:08)
[2018-05-20] MEDS: DIVALPROEX 500 MG TAB.ER.24H PO SCH (21:08)
[2018-05-21] MEDS: POLYETHYLENE GLYCOL 17 GM PACKET PO PRN ×2 (01:12→18:18)
[2018-05-21] MEDS: LEVOTHYROXINE 75 MCG TABLET PO SCH (06:22)
[2018-05-21 07:15] VITALS: BP 127/83
[2018-05-21] MEDS: GABAPENTIN 300 MG CAPSULE PO SCH ×2 (08:57→20:49)
[2018-05-21] MEDS: BENZTROPINE 1 MG TABLET PO SCH ×2 (08:58→20:48)
[2018-05-21] MEDS: NICOTINE 14MG/24 HR PATCH.TD24 TD SCH (17:04)
[2018-05-21] MEDS: TRAZODONE 100MG TABLET PO SCH (20:49)
[2018-05-21] MEDS: ATORVASTATIN 40 MG TABLET PO SCH (20:49)
[2018-05-21] MEDS: DIVALPROEX 500 MG TAB.ER.24H PO SCH (20:49)
[2018-05-21] MEDS: ACETAMINOPHEN 325 MG TABLET PO PRN (20:55)
[2018-05-21 21:19] VITALS: BP 124/83
[2018-05-22] MEDS: LEVOTHYROXINE 75 MCG TABLET PO SCH (05:53)
[2018-05-22 07:55] VITALS: BP 95/70
[2018-05-22] MEDS: GABAPENTIN 300 MG CAPSULE PO SCH ×2 (09:45→20:48)
[2018-05-22] MEDS: BENZTROPINE 1 MG TABLET PO SCH ×2 (09:45→20:47)
[2018-05-22] MEDS: NICOTINE 14MG/24 HR PATCH.TD24 TD SCH (16:19)
[2018-05-22] MEDS: POLYETHYLENE GLYCOL 17 GM PACKET PO PRN (18:34)
[2018-05-22 19:49] VITALS: BP 106/69
[2018-05-22] MEDS: TRAZODONE 100MG TABLET PO SCH (20:46)
[2018-05-22] MEDS: DIVALPROEX 500 MG TAB.ER.24H PO SCH (20:46)
[2018-05-22] MEDS: ATORVASTATIN 40 MG TABLET PO SCH (20:46)
[2018-05-23] MEDS: LEVOTHYROXINE 75 MCG TABLET PO SCH (05:51)
[2018-05-23 07:59] VITALS: BP 96/65
[2018-05-23] MEDS: GABAPENTIN 300 MG CAPSULE PO SCH (08:43)
[2018-05-23] MEDS: BENZTROPINE 1 MG TABLET PO SCH (08:43)
[2018-05-23] MEDS ORDERED: NICO-486 TD (12:08)
[2018-05-23] MEDS ORDERED: BENZ1TAB61 PO (12:08)
[2018-05-23] MEDS ORDERED: LEVO75TA PO (12:08)
[2018-05-23] MEDS ORDERED: OLAN10TA9 PO (12:08)
[2018-05-23] MEDS ORDERED: GABA300C10 PO (12:08)
[2018-05-23] MEDS ORDERED: FLUTICASONE IH (12:08)
[2018-05-23] MEDS ORDERED: TRAZ-137 PO (12:08)
[2018-05-23] MEDS ORDERED: DIVA500T4 PO (12:08)
[2018-05-23] MEDS ORDERED: SALMETEROL IH (12:08)
[2018-05-23] MEDS ORDERED: ERGO500017 PO (12:08)
[2018-05-23] MEDS ORDERED: ATOR40TA78 PO (12:08)
== END 2018-05-23 13:50 | disposition home or self-care (01) | DRG 885 ==
LOC: 3E 21:30
PROVIDERS: ADMIT Counselor Mental Health; ATTEND Counselor Mental Health
DX: F25.0 Schizoaffective disorder, bipolar type (principal); R45.851 Suicidal ideations; E03.9 Hypothyroidism, unspecified; E11.22 Type 2 diabetes mellitus with diabetic chronic kidney disease; E78.5 Hyperlipidemia, unspecified; F09 Unspecified mental disorder due to known physiological condition; F17.200 Nicotine dependence, unspecified, uncomplicated; G47.00 Insomnia, unspecified; G89.29 Other chronic pain; I12.9 Hypertensive chronic kidney disease with stage 1 through stage 4 chronic kidney disease, or unspecified chronic kidney disease; I25.10 Atherosclerotic heart disease of native coronary artery without angina pectoris; K21.9 Gastro-esophageal reflux disease without esophagitis; N18.9 Chronic kidney disease, unspecified; Z79.899 Other long term (current) drug therapy; Z82.49 Family history of ischemic heart disease and other diseases of the circulatory system; Z95.5 Presence of coronary angioplasty implant and graft
CPT/HCPCS: 36415; 71045; 80048; 80061; 82140; 82607; 84439; 84443; 86592; 93005

== ENCOUNTER 2018-06-14 20:21 | Emergency (ER) | payer MEDICARE, MEDICAID ==
[~2018-06-14 20:21] MED LIST changes: +BENZ1TAB61 PO; +DIVA500T4 PO; +FLUTICASONE IH; +LEVO75TA PO; +NICO-486 TD; +OLAN10TA9 PO; +SALMETEROL IH; +TRAZ-137 PO
--- NOTE | 2018-06-14 20:32 | NUR ---
[place] [id number]
--- NOTE | 2018-06-14 20:44 | NUR ---
PT TO RADIOLOGY AT THIS TIME. PT REPORTED TO MD THAT SHE DID NOT HAV LEG PAIN, SHE WAS HERE FOR A COUGH
[2018-06-14 20:51] VITALS: BP 129/68
--- NOTE | 2018-06-14 22:13 | NUR ---
CAB VOUCHER HOME, PT NAD AT DISCHARGE
== END 2018-06-14 22:14 | disposition home or self-care (01) ==
LOC: ED 22:05
DX: S20.219A Contusion of unspecified front wall of thorax, initial encounter (principal); I10 Essential (primary) hypertension; E11.9 Type 2 diabetes mellitus without complications; F41.1 Generalized anxiety disorder; K21.9 Gastro-esophageal reflux disease without esophagitis; I25.10 Atherosclerotic heart disease of native coronary artery without angina pectoris; F31.9 Bipolar disorder, unspecified; F20.9 Schizophrenia, unspecified; E03.9 Hypothyroidism, unspecified; Z95.5 Presence of coronary angioplasty implant and graft; W18.30XA Fall on same level, unspecified, initial encounter; Y93.89 Activity, other specified; Y92.009 Unspecified place in unspecified non-institutional (private) residence as the place of occurrence of the external cause; Y99.8 Other external cause status
CPT/HCPCS: 71046; 82962; 99283

== ENCOUNTER 2018-07-07 22:29 | Emergency (ER) | payer MEDICARE, MEDICAID ==
[~2018-07-07] VITALS: Ht 162.6 cm; Wt 70.0 kg
--- NOTE | 2018-07-07 22:47 | NUR ---
PT TO CT
[2018-07-07 22:49] LABS: BASOPHILS # (AUTO) 0.05 x10^3/uL (0-0.1); BASOPHILS % (AUTO) 1 % (0-1); EOSINOPHILS # (AUTO) 0.12 x10^3/uL (0-0.4); EOSINOPHILS % (AUTO) 2 % (1-7); LYMPHOCYTES # (AUTO) 1.97 x10^3/uL (1-3.4); LYMPHOCYTES % (AUTO) 33 % (22-44); MD NO; MEAN CORPUSCULAR HEMOGLOBIN 31.5 pg (27.0-34.8); MEAN CORPUSCULAR HGB CONC 33.7 g/dL (32.4-35.8); MEAN CORPUSCULAR VOLUME 93.5 fL (80-100); MEAN PLATELET VOLUME 7.2 fL (7.4-10.4); MONOCYTES # (AUTO) 0.69 x10^3/uL (0.2-0.8); MONOCYTES % (AUTO) 12 % (2-9); NEUTROPHILS % (AUTO) 53 % (42-75); PLATELET COUNT 193 x10^3/uL (130-400); RED BLOOD COUNT 4.48 x10^6/uL (3.82-5.3); RED CELL DISTRIBUTION WIDTH 15.3 % (9.6-15.2)
[2018-07-07 22:57] LABS: ANION GAP 7 mmol/L (5-15); CHLORIDE 109 mmol/L (98-107); CREATININE 1.23 mg/dL (0.55-1.02)
[2018-07-07 23:06] VITALS: BP 123/69
--- NOTE | 2018-07-07 23:12 | NUR ---
PT RESTING CALMY, MONITORS IN PLACE, SIDERAILS UP X2, CALL LIGHT WITHIN REACH. AWAITING CT AND LAB RESULTS
== END 2018-07-07 23:41 | disposition home or self-care (01) ==
LOC: ED 23:28
DX: S09.8XXA Other specified injuries of head, initial encounter (principal); E11.9 Type 2 diabetes mellitus without complications; I10 Essential (primary) hypertension; F31.9 Bipolar disorder, unspecified; K21.9 Gastro-esophageal reflux disease without esophagitis; E03.9 Hypothyroidism, unspecified; F25.9 Schizoaffective disorder, unspecified; R51 Headache; Z72.9 Problem related to lifestyle, unspecified; Z60.2 Problems related to living alone; W19.XXXA Unspecified fall, initial encounter; Z91.81 History of falling; Y93.89 Activity, other specified; Y92.89 Other specified places as the place of occurrence of the external cause; Y99.8 Other external cause status
CPT/HCPCS: 36415; 70450; 72125; 80048; 85025; 99284

== ENCOUNTER 2018-07-15 20:27 | Emergency (ER) | payer MEDICARE, MEDICAID ==
[~2018-07-15] VITALS: Ht 167.6 cm; Wt 80.0 kg
[2018-07-15 20:46] LABS: BASOPHILS # (AUTO) 0.04 x10^3/uL (0-0.1); BASOPHILS % (AUTO) 1 % (0-1); EOSINOPHILS # (AUTO) 0.14 x10^3/uL (0-0.4); EOSINOPHILS % (AUTO) 4 % (1-7); LYMPHOCYTES # (AUTO) 1.46 x10^3/uL (1-3.4); LYMPHOCYTES % (AUTO) 42 % (22-44); MD NO; MEAN CORPUSCULAR HEMOGLOBIN 31.4 pg (27.0-34.8); MEAN CORPUSCULAR HGB CONC 33.8 g/dL (32.4-35.8); MEAN CORPUSCULAR VOLUME 92.9 fL (80-100); MEAN PLATELET VOLUME 7.6 fL (7.4-10.4); MONOCYTES # (AUTO) 0.58 x10^3/uL (0.2-0.8); MONOCYTES % (AUTO) 17 % (2-9); NEUTROPHILS # (AUTO) 1.28 x10^3/uL (1.8-6.8); NEUTROPHILS % (AUTO) 37 % (42-75); PLATELET COUNT 128 x10^3/uL (130-400); RED BLOOD COUNT 4.24 x10^6/uL (3.82-5.3); RED CELL DISTRIBUTION WIDTH 15.5 % (9.6-15.2)
[2018-07-15 20:55] LABS: ALANINE AMINOTRANSFERASE 20 U/L (12-78); ALBUMIN 2.9 g/dL (3.4-5.0); ANION GAP 7 mmol/L (5-15); CALCIUM 8.7 mg/dL (8.5-10.1); CHLORIDE 109 mmol/L (98-107); CREATININE 1.06 mg/dL (0.55-1.02)
[2018-07-15 20:57] LABS: ALKALINE PHOSPHATASE 70 U/L (45-117); BILIRUBIN,TOTAL 0.2 mg/dL (0.2-1.0); TOTAL PROTEIN 5.9 g/dL (6.4-8.2)
--- NOTE | 2018-07-15 21:05 | NUR ---
Pt ambualted to restroom with steady gait. Awaiting ct results, remains on cont cardiac and pulse ox monitoring
[2018-07-15 21:18] VITALS: BP 123/63
== END 2018-07-15 21:32 | disposition home or self-care (01) ==
LOC: ED 21:26
DX: M54.2 Cervicalgia (principal); R51 Headache; F17.200 Nicotine dependence, unspecified, uncomplicated; I10 Essential (primary) hypertension; I25.10 Atherosclerotic heart disease of native coronary artery without angina pectoris; E11.9 Type 2 diabetes mellitus without complications; E03.9 Hypothyroidism, unspecified
CPT/HCPCS: 36415; 70450; 72125; 80053; 85025; 99284

== ENCOUNTER 2018-10-18 19:33 | Emergency (ER) | payer MEDICAID, MEDICARE ==
[~2018-10-18] VITALS: Ht 162.6 cm; Wt 74.5 kg
--- NOTE | 2018-10-18 19:46 | NUR ---
PATIENT BIB [facility] FOR CP STARTING TODAY AT 1830. PATIENT STATES SHE WAS RECENTLY HOSPITALIZED FOR PNEUMONIA 6 DAYS AGO, ON DAY 5 FOR ABX. IV ESTABLISHED, ASA GIVEN EN ROUTE. VOCATIONAL NURSE ON PATIENT, EKG COMPLETED BY EMT, AWAITING MD ORDERS, CALL LIGHT WITHIN REACH, GABRIEL.
[2018-10-18] MEDS ORDERED: DIVA-61 PO (20:00)
--- NOTE | 2018-10-18 20:42 | NUR ---
XRAY AT BEDSIDE.
[2018-10-18 20:59] LABS: BASOPHILS # (AUTO) 0.05 x10^3/uL (0-0.1); BASOPHILS % (AUTO) 1 % (0-1); EOSINOPHILS # (AUTO) 0.13 x10^3/uL (0-0.4); EOSINOPHILS % (AUTO) 2 % (1-7); LYMPHOCYTES # (AUTO) 2.28 x10^3/uL (1-3.4); LYMPHOCYTES % (AUTO) 39 % (22-44); MD NO; MEAN CORPUSCULAR HEMOGLOBIN 31.8 pg (27.0-34.8); MEAN CORPUSCULAR HGB CONC 33.5 g/dL (32.4-35.8); MEAN CORPUSCULAR VOLUME 94.9 fL (80-100); MEAN PLATELET VOLUME 7.3 fL (7.4-10.4); MONOCYTES # (AUTO) 0.71 x10^3/uL (0.2-0.8); MONOCYTES % (AUTO) 12 % (2-9); NEUTROPHILS # (AUTO) 2.73 x10^3/uL (1.8-6.8); NEUTROPHILS % (AUTO) 46 % (42-75); PLATELET COUNT 188 x10^3/uL (130-400); RED BLOOD COUNT 4.48 x10^6/uL (3.82-5.3); RED CELL DISTRIBUTION WIDTH 16.3 % (9.6-15.2)
[2018-10-18 21:14] LABS: ALANINE AMINOTRANSFERASE 15 U/L (12-78); ALBUMIN 3.2 g/dL (3.4-5.0); ANION GAP 8 mmol/L (5-15); CALCIUM 9.1 mg/dL (8.5-10.1); CHLORIDE 109 mmol/L (98-107); CREATININE 1.19 mg/dL (0.55-1.02); INTERNATIONAL NORMALIZED RATIO 1.02 (0.93-1.1); PROTHROMBIN TIME 10.7 Seconds (9.6-11.5)
[2018-10-18 21:18] LABS: ALKALINE PHOSPHATASE 84 U/L (45-117); BILIRUBIN,TOTAL 0.5 mg/dL (0.2-1.0); TOTAL PROTEIN 6.4 g/dL (6.4-8.2); TROPONIN I 0.026 ng/mL (0.000-0.045)
[2018-10-18 22:05] VITALS: BP 141/84
== END 2018-10-18 22:37 | disposition home or self-care (01) ==
LOC: ED 20:27
DX: R07.89 Other chest pain (principal); I10 Essential (primary) hypertension; E11.9 Type 2 diabetes mellitus without complications; J44.9 Chronic obstructive pulmonary disease, unspecified; F41.1 Generalized anxiety disorder; F31.9 Bipolar disorder, unspecified; I25.10 Atherosclerotic heart disease of native coronary artery without angina pectoris; F20.9 Schizophrenia, unspecified; F17.200 Nicotine dependence, unspecified, uncomplicated; E03.9 Hypothyroidism, unspecified
CPT/HCPCS: 36415; 71045; 80053; 83880; 84484; 85025; 85610; 85730; 93005; 99284

== ENCOUNTER 2019-02-18 21:01 | Emergency (ER) | payer MEDICARE, MEDICAID ==
[~2019-02-18] VITALS: Ht 157.5 cm; Wt 69.0 kg
[~2019-02-18 21:01] MED LIST changes: +DIVA-61 PO; +OLAN20TA14 PO; -OLAN20TA7 PO; +OLAN5TAB9 PO
[2019-02-18 21:55] LABS: MICROSCOPIC NOT IND
[2019-02-18 22:00] LABS: BASOPHILS # (AUTO) 0.06 x10^3/uL (0-0.1); BASOPHILS % (AUTO) 1 % (0-1); EOSINOPHILS # (AUTO) 0.12 x10^3/uL (0-0.4); EOSINOPHILS % (AUTO) 2 % (1-7); LYMPHOCYTES # (AUTO) 1.82 x10^3/uL (1-3.4); LYMPHOCYTES % (AUTO) 29 % (22-44); MD NO; MEAN CORPUSCULAR HEMOGLOBIN 31.9 pg (27.0-34.8); MEAN CORPUSCULAR HGB CONC 33.6 g/dL (32.4-35.8); MEAN CORPUSCULAR VOLUME 94.8 fL (80-100); MEAN PLATELET VOLUME 6.7 fL (7.4-10.4); MONOCYTES # (AUTO) 0.96 x10^3/uL (0.2-0.8); MONOCYTES % (AUTO) 15 % (2-9); NEUTROPHILS % (AUTO) 54 % (42-75); PLATELET COUNT 192 x10^3/uL (130-400); RED BLOOD COUNT 4.59 x10^6/uL (3.82-5.3); RED CELL DISTRIBUTION WIDTH 15.7 % (9.6-15.2)
[2019-02-18 22:11] LABS: ALANINE AMINOTRANSFERASE 16 U/L (12-78); ANION GAP 7 mmol/L (5-15); CALCIUM 8.8 mg/dL (8.5-10.1); CHLORIDE 108 mmol/L (98-107); CREATININE 1.13 mg/dL (0.55-1.02)
[2019-02-18 22:13] LABS: ALKALINE PHOSPHATASE 86 U/L (45-117); BILIRUBIN,TOTAL 0.5 mg/dL (0.2-1.0); TOTAL PROTEIN 6.5 g/dL (6.4-8.2)
[2019-02-18 22:14] LABS: CULTURE INDICATED? NO
[2019-02-18 22:36] VITALS: BP 140/81
== END 2019-02-18 22:39 | disposition home or self-care (01) ==
LOC: ED 22:32
DX: R10.84 Generalized abdominal pain (principal); R10.33 Periumbilical pain; Z72.9 Problem related to lifestyle, unspecified; I10 Essential (primary) hypertension; E11.9 Type 2 diabetes mellitus without complications; J44.9 Chronic obstructive pulmonary disease, unspecified; K21.9 Gastro-esophageal reflux disease without esophagitis; F20.0 Paranoid schizophrenia; I25.10 Atherosclerotic heart disease of native coronary artery without angina pectoris; F31.9 Bipolar disorder, unspecified; E03.9 Hypothyroidism, unspecified; F17.200 Nicotine dependence, unspecified, uncomplicated; Z98.61 Coronary angioplasty status
CPT/HCPCS: 36415; 74021; 80053; 81003; 83690; 85025; 99284

== ENCOUNTER 2019-03-02 20:10 | Emergency (ER) | payer MEDICARE, MEDICAID ==
[~2019-03-02] VITALS: Ht 167.6 cm; Wt 67.9 kg
[2019-03-02] MEDS ORDERED: DEXAMETHASONE 4 MG TABLET ONE (20:43)
[2019-03-02] MEDS ORDERED: ALBUTEROL/IPRATROPIUM 2.5MG/0.5MG, 3 ML ONE (20:47)
--- NOTE | 2019-03-02 20:56 | NUR ---
BACK FROM IMAGING. THE PT AMB TO THE BR AND VOIDED W/O DIFF. BACK TO BED. THE PT ROOM AIR MAINTAINED AT 97-98 %.
--- NOTE | 2019-03-02 20:57 | NUR ---
RT IN ROOM ADM BX TX.
[2019-03-02] MEDS ORDERED: ALBUTEROL/IPRATROPIUM 2.5MG/0.5MG, 3 ML NPPB ONE (21:00)
[2019-03-02] MEDS ORDERED: DEXAMETHASONE 4 MG TABLET PO ONE (21:00)
--- NOTE | 2019-03-02 21:24 | NUR ---
EKG COMPLETED. ERP REVIEWED.
[2019-03-02 21:38] VITALS: BP 167/76
== END 2019-03-02 21:41 | disposition home or self-care (01) ==
LOC: ED 21:35
DX: J44.1 Chronic obstructive pulmonary disease with (acute) exacerbation (principal); I10 Essential (primary) hypertension; E11.9 Type 2 diabetes mellitus without complications; K21.9 Gastro-esophageal reflux disease without esophagitis; I25.10 Atherosclerotic heart disease of native coronary artery without angina pectoris; F20.0 Paranoid schizophrenia; F31.9 Bipolar disorder, unspecified; E03.9 Hypothyroidism, unspecified; F17.210 Nicotine dependence, cigarettes, uncomplicated; Z88.0 Allergy status to penicillin; Z88.1 Allergy status to other antibiotic agents
CPT/HCPCS: 71046; 93005; 94640; 99283; J7620

== ENCOUNTER 2019-03-19 18:47 | Emergency (ER) | payer MEDICARE, MEDICAID ==
[~2019-03-19] VITALS: Ht 157.5 cm; Wt 75.7 kg
[2019-03-19 19:15] VITALS: BP 156/80
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
== END 2019-03-19 20:33 | disposition home or self-care (01) ==
LOC: ED 20:25
DX: F25.9 Schizoaffective disorder, unspecified (principal); I10 Essential (primary) hypertension; E11.9 Type 2 diabetes mellitus without complications; K21.9 Gastro-esophageal reflux disease without esophagitis; J44.9 Chronic obstructive pulmonary disease, unspecified; F31.9 Bipolar disorder, unspecified; F17.200 Nicotine dependence, unspecified, uncomplicated; Z86.39 Personal history of other endocrine, nutritional and metabolic disease
CPT/HCPCS: 99284

== ENCOUNTER 2019-04-07 14:37 | Emergency (ER) | payer MEDICARE ==
[~2019-04-07] VITALS: Ht 160 cm; Wt 74.6 kg
[2019-04-07 14:44] VITALS: BP 143/81
--- NOTE | 2019-04-07 15:15 | NUR ---
PT STATES AT 1400 TODAY SHE HAD MOBILE AND VISUAL PROBLEMS FOR 20 MINUTES. PT STATES LULI Lauryn FEELS FINE NOW
== END 2019-04-07 16:01 | disposition home or self-care (01) ==
LOC: ED 15:45
DX: R53.1 Weakness (principal); I10 Essential (primary) hypertension; E11.9 Type 2 diabetes mellitus without complications; J44.9 Chronic obstructive pulmonary disease, unspecified; K21.9 Gastro-esophageal reflux disease without esophagitis; E03.9 Hypothyroidism, unspecified; I25.10 Atherosclerotic heart disease of native coronary artery without angina pectoris
CPT/HCPCS: 99281

== ENCOUNTER 2019-04-09 18:40 | Emergency (ER) | payer MEDICARE ==
[~2019-04-09] VITALS: Ht 162.6 cm; Wt 74.9 kg
[2019-04-09 18:45] VITALS: BP 114/72
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
== END 2019-04-09 19:54 | disposition home or self-care (01) ==
LOC: ED 18:54
DX: S93.402A Sprain of unspecified ligament of left ankle, initial encounter (principal); E11.9 Type 2 diabetes mellitus without complications; I10 Essential (primary) hypertension; I25.10 Atherosclerotic heart disease of native coronary artery without angina pectoris; J44.9 Chronic obstructive pulmonary disease, unspecified; G40.909 Epilepsy, unspecified, not intractable, without status epilepticus; Z86.39 Personal history of other endocrine, nutritional and metabolic disease; F17.200 Nicotine dependence, unspecified, uncomplicated
CPT/HCPCS: 99283

== ENCOUNTER 2019-04-25 19:22 | Emergency (ER) | payer MEDICARE, MEDICAID ==
[~2019-04-25] VITALS: Ht 162.6 cm; Wt 77.5 kg
[2019-04-25 19:31] VITALS: BP 157/94
== END 2019-04-25 21:01 | disposition home or self-care (01) ==
LOC: ED 20:25
DX: S20.211A Contusion of right front wall of thorax, initial encounter (principal); K21.9 Gastro-esophageal reflux disease without esophagitis; J44.0 Chronic obstructive pulmonary disease with (acute) lower respiratory infection; E11.9 Type 2 diabetes mellitus without complications; I25.10 Atherosclerotic heart disease of native coronary artery without angina pectoris; I11.9 Hypertensive heart disease without heart failure; E03.9 Hypothyroidism, unspecified; F17.200 Nicotine dependence, unspecified, uncomplicated; W01.0XXA Fall on same level from slipping, tripping and stumbling without subsequent striking against object, initial encounter; Y93.89 Activity, other specified; Y92.488 Other paved roadways as the place of occurrence of the external cause; Y99.8 Other external cause status
CPT/HCPCS: 72110; 99283

== ENCOUNTER 2019-05-12 17:50 | Emergency (ER) | payer MEDICARE, MEDICAID ==
[~2019-05-12] VITALS: Ht 165.1 cm; Wt 79.8 kg
[2019-05-12 18:40] LABS: BASOPHILS # (AUTO) 0.04 x10^3/uL (0-0.1); BASOPHILS % (AUTO) 1 % (0-1); EOSINOPHILS # (AUTO) 0.08 x10^3/uL (0-0.4); EOSINOPHILS % (AUTO) 2 % (1-7); LYMPHOCYTES # (AUTO) 1.75 x10^3/uL (1-3.4); LYMPHOCYTES % (AUTO) 31 % (22-44); MD NO; MEAN CORPUSCULAR HEMOGLOBIN 31.7 pg (27.0-34.8); MEAN CORPUSCULAR HGB CONC 33.6 g/dL (32.4-35.8); MEAN CORPUSCULAR VOLUME 94.2 fL (80-100); MEAN PLATELET VOLUME 7.2 fL (7.4-10.4); MONOCYTES # (AUTO) 0.88 x10^3/uL (0.2-0.8); MONOCYTES % (AUTO) 16 % (2-9); NEUTROPHILS # (AUTO) 2.85 x10^3/uL (1.8-6.8); NEUTROPHILS % (AUTO) 51 % (42-75); PLATELET COUNT 180 x10^3/uL (130-400); RED BLOOD COUNT 4.64 x10^6/uL (3.82-5.3); RED CELL DISTRIBUTION WIDTH 16.2 % (9.6-15.2)
[2019-05-12 18:51] LABS: ANION GAP 8 mmol/L (5-15); CALCIUM 8.7 mg/dL (8.5-10.1); CHLORIDE 109 mmol/L (98-107); CREATININE 1.32 mg/dL (0.55-1.02); SALICYLATE LEVEL 3.6 mg/dL (2.8-20.0)
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
[2019-05-12 19:17] LABS: AMPHETAMINE SCREEN, URINE Negative (Negative); BARBITURATE SCREEN, URINE Negative (Negative); BENZODIAZEPINE SCREEN, URINE Negative (Negative); CANNABINOID SCREEN, URINE Negative (Negative); COCAINE SCREEN, URINE Negative (Negative); METHADONE SCREEN, URINE Negative (Negative); OPIATE SCREEN, URINE Negative (Negative)
--- NOTE | 2019-05-12 19:18 | NUR ---
MICAELA RN: TELEPSYCH CONSULT INITIATED. BOT PLACED IN ROOM.
[2019-05-12 21:52] VITALS: BP 122/71
--- NOTE | 2019-05-12 21:54 | NUR ---
Gave report to Dr. Pressley regarding [facility] sbar.
--- NOTE | 2019-05-12 22:12 | NUR ---
Spoke with Dr. Pressley, Dr. Pressley at this time feels safe for pt to dc home. Pt has good resources and scheduled outpatient follow up.
--- NOTE | 2019-05-12 23:25 | NUR ---
Patient/Caregiver given discharge instructions and they have confirmed that they understand the instructions. Patient ambulatory with steady gait.
--- NOTE | 2019-05-12 23:40 | NUR ---
Patient/Caregiver given discharge instructions and they have confirmed that they understand the instructions. Patient ambulatory with steady gait.
== END 2019-05-12 23:42 | disposition home or self-care (01) ==
LOC: ED 18:58
DX: F41.1 Generalized anxiety disorder (principal); Z72.9 Problem related to lifestyle, unspecified; I10 Essential (primary) hypertension; E11.9 Type 2 diabetes mellitus without complications; K21.9 Gastro-esophageal reflux disease without esophagitis; I25.10 Atherosclerotic heart disease of native coronary artery without angina pectoris; J44.9 Chronic obstructive pulmonary disease, unspecified; E03.9 Hypothyroidism, unspecified; F17.200 Nicotine dependence, unspecified, uncomplicated
CPT/HCPCS: 36415; 80048; 80307; 82040; 85025; 99283

== ENCOUNTER 2019-06-04 17:58 | Emergency (ER) | payer MEDICAID, MEDICARE ==
[~2019-06-04] VITALS: Ht 162.6 cm; Wt 77.8 kg
[~2019-06-04 17:58] MED LIST changes: -HYDR50TA13 PO; +HYDR50TA99 PO; -RANI-448 PO; +RANI-460 PO; -TRAZ-137 PO; +TRAZ-175 PO
[2019-06-04 19:14] VITALS: BP 134/97
[2019-06-04 19:57] LABS: MICROSCOPIC NOT IND
[2019-06-04 20:04] LABS: CULTURE INDICATED? NO
[2019-06-04 20:43] LABS: BASOPHILS # (AUTO) 0.11 x10^3/uL (0-0.1); BASOPHILS % (AUTO) 2 % (0-1); EOSINOPHILS # (AUTO) 0.15 x10^3/uL (0-0.4); EOSINOPHILS % (AUTO) 3 % (1-7); LYMPHOCYTES # (AUTO) 1.86 x10^3/uL (1-3.4); LYMPHOCYTES % (AUTO) 31 % (22-44); MD NO; MEAN CORPUSCULAR HGB CONC 33.9 g/dL (32.4-35.8); MEAN CORPUSCULAR VOLUME 94.3 fL (80-100); MEAN PLATELET VOLUME 7.8 fL (7.4-10.4); MONOCYTES # (AUTO) 0.87 x10^3/uL (0.2-0.8); MONOCYTES % (AUTO) 15 % (2-9); NEUTROPHILS # (AUTO) 2.94 x10^3/uL (1.8-6.8); NEUTROPHILS % (AUTO) 50 % (42-75); PLATELET COUNT 187 x10^3/uL (130-400); RED BLOOD COUNT 4.69 x10^6/uL (3.82-5.3); RED CELL DISTRIBUTION WIDTH 15.6 % (9.6-15.2)
[2019-06-04 20:53] LABS: ANION GAP 7 mmol/L (5-15); CALCIUM 9.3 mg/dL (8.5-10.1); CHLORIDE 110 mmol/L (98-107)
[2019-06-04 20:57] LABS: ALANINE AMINOTRANSFERASE 13 U/L (12-78); ALKALINE PHOSPHATASE 99 U/L (45-117); BILIRUBIN,TOTAL 0.4 mg/dL (0.2-1.0); CREATININE 1.11 mg/dL (0.55-1.02); TOTAL PROTEIN 6.6 g/dL (6.4-8.2)
== END 2019-06-04 21:54 | disposition left against medical advice (07) ==
LOC: ED 21:35
DX: R10.9 Unspecified abdominal pain (principal); R51 Headache; R11.0 Nausea
CPT/HCPCS: 36415; 80053; 81003; 83690; 85025; 99283

== ENCOUNTER 2019-07-16 19:36 | Emergency (ER) | payer MEDICARE, MEDICAID ==
[~2019-07-16] VITALS: Ht 162.6 cm; Wt 77.7 kg
[2019-07-16 19:50] VITALS: BP 140/80
--- NOTE | 2019-07-16 21:04 | NUR ---
TRANSFER IRON OPERATOR: PT CALLED TO BE ROOMED. NOT IN LOBBY. PRESUMED ELOPED
== END 2019-07-16 21:07 ==
LOC: ED 20:40
DX: N64.4 Mastodynia (principal); Z53.21 Procedure and treatment not carried out due to patient leaving prior to being seen by health care provider

== ENCOUNTER 2019-09-07 20:37 | Emergency (ER) | payer MEDICARE, MEDICAID ==
[~2019-09-07] VITALS: Ht 162.6 cm; Wt 80.7 kg
[2019-09-07 20:48] VITALS: BP 137/86
[2019-09-07] MEDS ORDERED: ACETAMINOPHEN 500 MG TABLET PO ONE (22:00)
[2019-09-07] MEDS ORDERED: ACETAMINOPHEN 500 MG TABLET ONE (22:10)
== END 2019-09-07 22:21 | disposition home or self-care (01) ==
LOC: ED 22:08
DX: S63.521A Sprain of radiocarpal joint of right wrist, initial encounter (principal); I25.10 Atherosclerotic heart disease of native coronary artery without angina pectoris; J44.9 Chronic obstructive pulmonary disease, unspecified; W01.0XXA Fall on same level from slipping, tripping and stumbling without subsequent striking against object, initial encounter; Y93.89 Activity, other specified; Y92.009 Unspecified place in unspecified non-institutional (private) residence as the place of occurrence of the external cause; Y99.8 Other external cause status
CPT/HCPCS: 29125; 99284

== ENCOUNTER 2019-09-25 18:45 | Emergency (ER) | payer MEDICARE ==
[~2019-09-25] VITALS: Ht 162.6 cm; Wt 80.1 kg
--- NOTE | 2019-09-25 19:14 | NUR ---
PT CAME IN TO [facility] WITH SUICIDAL IDEATION. PT DENIES PLAN BUT REPORTS INCREASING DEPRESSION SINCE DOCTOR TOLD HER THAT SHE HAS SCARRING ON HER AORTA. PT STATES THAT SHE HAS HISTORY OF DEPRESSION, BIPOLAR, AND SCHIZOPHRENIA. PT CHANGED INTO GOWN AND IS RESTING IN GURNEY AT THIS TIME. PT BELONGINGS COLLECTED AND PLACED INTO 2 OF 2 BAGS AND PLACED INTO BIN #2 IN LOCKER. PT ROOM SECURED FOR PT AND STAFF SAFETY. PT AMBULATES TO RESTROOM AT THIS TIME FOR UA/UDS AND SAMPLE WAS COLLECTED AND TUBED TO LAB. PT EDUCATED ON ER PROCESS AND VERBALIZES UNDERSTANDING. SITTER OUTSIDE OF PT ROOM AT THIS TIME FOR DIRECT OBSERVATION OF PT. AWAITING ERP FOR PT HISTORY AND ASSESSMENT AT THIS TIME. Addendum: 09/25/19 at 1918 by MYORK TASK RN: PT CAME IN TO [facility] WITH SUICIDAL IDEATION. PT DENIES PLAN BUT REPORTS INCREASING DEPRESSION SINCE DOCTOR TOLD HER THAT SHE HAS SCARRING ON HER AORTA. PT STATES THAT SHE HAS HISTORY OF DEPRESSION, BIPOLAR, AND SCHIZOPHRENIA. PT CHANGED INTO WN AND IS RESTING IN [place] AT THIS TIME. PT BELONGINGS COLLECTED AND PLACED INTO 2 OF 2 BAGS AND PLACED INTO BIN #2 IN LOCKER. PT ROOM SECURED FOR PT AND STAFF SAFETY. PT AMBULATES TO RESTROOM AT THIS TIME FOR UA/UDS AND SAMPLE WAS COLLECTED AND TUBED TO LAB. PT EDUCATED ON ER PROCESS AND VERBALIZES UNDERSTANDING. SITTER OUTSIDE OF PT ROOM AT THIS TIME FOR DIRECT OBSERVATION OF PT. AWAITING ERP FOR PT HISTORY AND ASSESSMENT AT THIS TIME.
[2019-09-25 19:35] LABS: BASOPHILS # (AUTO) 0.04 x10^3/uL (0-0.1); BASOPHILS % (AUTO) 1 % (0-1); EOSINOPHILS # (AUTO) 0.14 x10^3/uL (0-0.4); EOSINOPHILS % (AUTO) 2 % (1-7); LYMPHOCYTES # (AUTO) 1.73 x10^3/uL (1-3.4); LYMPHOCYTES % (AUTO) 29 % (22-44); MD NO; MEAN CORPUSCULAR HEMOGLOBIN 31.5 pg (27.0-34.8); MEAN CORPUSCULAR HGB CONC 33.7 g/dL (32.4-35.8); MEAN CORPUSCULAR VOLUME 93.4 fL (80-100); MEAN PLATELET VOLUME 7.2 fL (7.4-10.4); MONOCYTES # (AUTO) 0.85 x10^3/uL (0.2-0.8); MONOCYTES % (AUTO) 14 % (2-9); NEUTROPHILS # (AUTO) 3.26 x10^3/uL (1.8-6.8); NEUTROPHILS % (AUTO) 54 % (42-75); PLATELET COUNT 186 x10^3/uL (130-400); RED BLOOD COUNT 4.79 x10^6/uL (3.82-5.3)
[2019-09-25 19:42] LABS: ALBUMIN 3.2 g/dL (3.4-5.0); ANION GAP 7 mmol/L (5-15); CALCIUM 8.8 mg/dL (8.5-10.1); CHLORIDE 109 mmol/L (98-107); CREATININE 1.17 mg/dL (0.55-1.02); SALICYLATE LEVEL 3.9 mg/dL (2.8-20.0)
[2019-09-25 19:43] LABS: AMPHETAMINE SCREEN, URINE Negative (Negative); BARBITURATE SCREEN, URINE Negative (Negative); BENZODIAZEPINE SCREEN, URINE Negative (Negative); CANNABINOID SCREEN, URINE Negative (Negative); COCAINE SCREEN, URINE Negative (Negative); METHADONE SCREEN, URINE Negative (Negative); OPIATE SCREEN, URINE Negative (Negative)
--- NOTE | 2019-09-25 20:09 | NUR ---
PT RESTING IN ROOM.
--- NOTE | 2019-09-25 22:14 | NUR ---
PT SLEEPING AT THIS TIME WITH SITTER OUTSIDE ROOM.
--- NOTE | 2019-09-25 23:09 | NUR ---
TP RN: PT PLACED ON HOLD BY ERP. PACKET FAXED TO [facility], [facility], [facility], [facility] AND [facility]
--- NOTE | 2019-09-26 00:23 | NUR ---
TP RN: THIS PATIENT IS BEING ACCEPTED BY [facility]. DR. REYES IS THE ACCEPTING PHYSICIAN
[2019-09-26 00:33] VITALS: BP 137/87
--- NOTE | 2019-09-26 00:33 | NUR ---
PT RESTING AT THIS TIME. AGREEABLE WITH PLAN OF CARE OF INPATIENT PLACEMENT.
[2019-09-26] MEDS ORDERED: CETI-222 PO (12:43)
[2019-09-26] MEDS ORDERED: CHOL10003 PO (12:43)
== END 2019-09-26 00:50 ==
LOC: ED 09-26 00:42
DX: F20.0 Paranoid schizophrenia (principal); F32.9 Major depressive disorder, single episode, unspecified; R94.31 Abnormal electrocardiogram [ECG] [EKG]; I10 Essential (primary) hypertension; E11.9 Type 2 diabetes mellitus without complications; I25.10 Atherosclerotic heart disease of native coronary artery without angina pectoris; J44.9 Chronic obstructive pulmonary disease, unspecified; E03.9 Hypothyroidism, unspecified
CPT/HCPCS: 36415; 80048; 80307; 82040; 85025; 93005; 99285

== ENCOUNTER 2019-10-21 21:01 | Emergency (ER) | payer MEDICARE ==
[~2019-10-21] VITALS: Ht 165.1 cm; Wt 76.2 kg
[~2019-10-21 21:01] MED LIST changes: +CETI-222 PO; +CHOL10003 PO
--- NOTE | 2019-10-21 21:51 | NUR ---
Patient BIB [facility] c/o SI/HI. Patient states "I need to go in a detention. I don't like my neighbors. They talk to me through the wall. They say my name. Yesterday I was yelling and screaming and carrying on." Patient states that her neighbors being mean make her want to hurt herself and hurt them. Patient states she would use a kitchen knife to her throat to hurt herself. Patient also admits to visual and auditory hallucinations. She sees men in suits who tell her to get a job. Patient states she takes psych meds which aren't working but she is compliant with them. Patient states she was discharged from [facility] 5 weeks ago and has been feeling this way since then. Patient unable to provide urine at this time. Room secured, belongings locked in cabinet, sitter outside.
[2019-10-21 21:56] LABS: BASOPHILS # (AUTO) 0.04 x10^3/uL (0-0.1); BASOPHILS % (AUTO) 1 % (0-1); EOSINOPHILS # (AUTO) 0.14 x10^3/uL (0-0.4); EOSINOPHILS % (AUTO) 3 % (1-7); LYMPHOCYTES # (AUTO) 1.65 x10^3/uL (1-3.4); LYMPHOCYTES % (AUTO) 30 % (22-44); MD NO; MEAN CORPUSCULAR HEMOGLOBIN 30.8 pg (27.0-34.8); MEAN CORPUSCULAR HGB CONC 32.7 g/dL (32.4-35.8); MEAN CORPUSCULAR VOLUME 94.1 fL (80-100); MEAN PLATELET VOLUME 6.6 fL (7.4-10.4); MONOCYTES % (AUTO) 15 % (2-9); NEUTROPHILS # (AUTO) 2.86 x10^3/uL (1.8-6.8); NEUTROPHILS % (AUTO) 52 % (42-75); PLATELET COUNT 193 x10^3/uL (130-400); RED BLOOD COUNT 4.65 x10^6/uL (3.82-5.3); RED CELL DISTRIBUTION WIDTH 15.3 % (9.6-15.2)
[2019-10-21 22:09] LABS: ALBUMIN 3.1 g/dL (3.4-5.0); ANION GAP 5 mmol/L (5-15); CALCIUM 8.7 mg/dL (8.5-10.1); CHLORIDE 107 mmol/L (98-107); SALICYLATE LEVEL 3.1 mg/dL (2.8-20.0)
[2019-10-21 22:39] LABS: ALANINE AMINOTRANSFERASE 17 U/L (12-78); ALKALINE PHOSPHATASE 94 U/L (45-117); BILIRUBIN,TOTAL 0.4 mg/dL (0.2-1.0); CREATININE 1.29 mg/dL (0.55-1.02); FREE T4 (FREE THYROXINE) 1.16 ng/dL (0.76-1.46); TOTAL PROTEIN 6.5 g/dL (6.4-8.2)
--- NOTE | 2019-10-21 22:40 | NUR ---
Patient sleeping in rney. Respirations even and unlabored. Room secured, belongings in locked cabinet. Sitter outside.
--- NOTE | 2019-10-21 23:30 | NUR ---
Patient sleeping in rney. Respirations even and unlabored. Room secured, belongings in locked cabinet. Sitter outside.
--- NOTE | 2019-10-22 00:49 | NUR ---
Patient sleeping in rney. Respirations even and unlabored. Room secured, belongings in locked cabinet. Sitter outside.
--- NOTE | 2019-10-22 01:07 | NUR ---
RECEIVED REPORT FROM JULIETA DOWD TO ASSUME CARE OF PT. AT THIS TIME. PT. RESTING ON GURNEY WITH EYES CLOSED. SITTER IN DIRECT VIEW AND ROOM IS SECURED. NO DISTRESS NOTED. PT. TO BE PLACED ON LEGAL HOLD PER MD.
--- NOTE | 2019-10-22 01:39 | NUR ---
HOSPITAL BED REQUESTED FOR PT. WILL ATTEMPT TO COLLECT URINE SAMPLE AGAIN ONCE BED ARRIVES TO CHANGE OUT BEDS.
--- NOTE | 2019-10-22 02:21 | NUR ---
PT. AMBULATED TO WITH STEADY GAIT AND WAS ABLE TO FOLLOW INSTRUCTIONS FOR CLEAN CATCH UA. URINE SENT TO LAB. DELORES REPLACED WITH HOSPITAL BED AND PT. BACK TO BED. PT. PROVIDED WITH WARM BLANKETS PER REQUEST. DENIES OTHER NEEDS. ROOM REMAINS SECURED. SITTER IN WARD.
[2019-10-22 02:25] LABS: MICROSCOPIC NOT IND
[2019-10-22 02:36] LABS: AMPHETAMINE SCREEN, URINE Negative (Negative); BARBITURATE SCREEN, URINE Negative (Negative); BENZODIAZEPINE SCREEN, URINE Negative (Negative); CANNABINOID SCREEN, URINE Negative (Negative); COCAINE SCREEN, URINE Negative (Negative); METHADONE SCREEN, URINE Negative (Negative); OPIATE SCREEN, URINE Negative (Negative)
--- NOTE | 2019-10-22 02:51 | NUR ---
TP RN: DILLAN BLAIR OKAY TO FAX PACKET TO OTHER FACILITIES DUE TO AWAITING TO HEAR BACK FROM PSYCH . PACKET FAXED TO [facility], [facility], [facility], [facility].
--- NOTE | 2019-10-22 03:08 | NUR ---
REPORT FROM MELANIA RENDON, PT SLEEPING IN NAD, EVEN AND UNLABORED RESPIRATIONS. SITTER AT DOORWAY FOR SAFETY MONITORING.
--- NOTE | 2019-10-22 04:08 | NUR ---
PT CONTINUES TO SLEEP NADN. EVEN AND UNLABORED RESPIRATIONS. SITTER MONITORING FROM OUTSIDE OF ROOM.
--- NOTE | 2019-10-22 04:52 | NUR ---
CALL TO [facility], PER ADMISSION DEPT AT [facility], PT DOES NOT MEET THEIR ADMITTING CRITERIA.
--- NOTE | 2019-10-22 04:55 | NUR ---
CALL TO [facility], THEY WILL FOLLOW UP LATER THIS MORNING AFTER 0800 WHEN JAVA DEVELOPER CONSULTANT REVIEWS PACKET.
--- NOTE | 2019-10-22 05:41 | NUR ---
SLEEPING, EVEN AND UNLABORED RESPIRATIONS OBSERVED. SITTER OUTSIDE OF ROOM FOR SAFETY WATCH.
--- NOTE | 2019-10-22 06:30 | NUR ---
PT UP TO BR ON STEADY GAIT. SITTER WATCHING FOR SAFETY.
--- NOTE | 2019-10-22 06:57 | NUR ---
REPORT GIVEN TO SHANNAN RENDON.
--- NOTE | 2019-10-22 07:03 | NUR ---
ASSUMED CARE AFTER RECEIVING REPORT FROM ERNA RN. PT IN DIRECT VIEW OF SITTER AND ROOM EQUIPMENT SECURED BEHIND PULL DOWN DOORS.
--- NOTE | 2019-10-22 08:24 | NUR ---
UOB TO BATHROOM AND THEN PROVIDED BREAKFAST
[2019-10-22 08:29] VITALS: BP 137/83
--- NOTE | 2019-10-22 10:25 | NUR ---
MARIE SITE PROJECT MANAGER LOPEZ MOBILE NUMBER: [phone]/ OFFICE: [phone] MUNDO TAKES HER [phone]
[2019-10-22] MEDS ORDERED: LORazepam 1MG TABLET ONE (10:41)
--- NOTE | 2019-10-22 10:46 | NUR ---
PT FEELING ANXIOUS AND STATES IT IS BECAUSE SHE HAS NOT TAKEN HER MORNING MEDS. PT DOES NOT KNOW HER MEDS IN ORDER TO GO THROUGH MED REC. RECEIVED ORDER AND MEDICATED WITH ATIVAN NOTED ON MAR
[2019-10-22] MEDS ORDERED: LORazepam 1MG TABLET PO ONE (11:00)
--- NOTE | 2019-10-22 11:15 | NUR ---
REPORT TO ARNOLDO. TO BE TRANSPORTED TO [facility]
== END 2019-10-22 11:41 | disposition other institution (70) ==
LOC: ED 21:41
DX: F25.0 Schizoaffective disorder, bipolar type (principal); I44.4 Left anterior fascicular block; R94.31 Abnormal electrocardiogram [ECG] [EKG]
CPT/HCPCS: 36415; 80053; 80307; 81003; 84439; 84443; 85025; 93005; 99284

== ENCOUNTER 2019-11-05 20:34 | Emergency (ER) | payer MEDICARE, MEDICAID ==
[~2019-11-05] VITALS: Ht 160 cm; Wt 81.8 kg
[~2019-11-05 20:34] MED LIST changes: +DIVA250T PO; +NICO-487 TD
[2019-11-05 20:37] VITALS: BP 137/92
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
[2019-11-05] MEDS ORDERED: LORazepam 0.5MG TABLET ONE (21:23)
[2019-11-05] MEDS ORDERED: LORazepam 0.5MG TABLET PO ONE (21:30)
== END 2019-11-05 21:36 | disposition home or self-care (01) ==
LOC: ED 21:00
DX: F41.1 Generalized anxiety disorder (principal); I10 Essential (primary) hypertension; E11.9 Type 2 diabetes mellitus without complications; K21.9 Gastro-esophageal reflux disease without esophagitis; J44.9 Chronic obstructive pulmonary disease, unspecified; F17.200 Nicotine dependence, unspecified, uncomplicated; E03.9 Hypothyroidism, unspecified; I25.10 Atherosclerotic heart disease of native coronary artery without angina pectoris
CPT/HCPCS: 99283

== ENCOUNTER 2019-12-06 21:10 | Emergency (ER) | payer MEDICARE, MEDICAID ==
[~2019-12-06] VITALS: Ht 161.3 cm; Wt 80.0 kg
[2019-12-06 21:24] VITALS: BP 115/79
--- NOTE | 2019-12-06 21:44 | NUR ---
THIS IS A 73Y F THAT COMES IN FOR FEELING IF HER HEART BEATS WHEN SHE BREATHES. PT HAS SEEN HER SOIL SCIENCE TECHNICAL OFFICER AND HAS BEEN FOLLOWING WITH THEM, NEXT APT IS IN JANUARY. PT CONNECTED TO MONITORING VSS NADN.
[2019-12-06 22:19] LABS: BASOPHILS # (AUTO) 0.03 x10^3/uL (0-0.1); BASOPHILS % (AUTO) 1 % (0-1); EOSINOPHILS # (AUTO) 0.13 x10^3/uL (0-0.4); EOSINOPHILS % (AUTO) 2 % (1-7); LYMPHOCYTES % (AUTO) 29 % (22-44); MD NO; MEAN CORPUSCULAR HEMOGLOBIN 31.9 pg (27.0-34.8); MEAN CORPUSCULAR HGB CONC 33.9 g/dL (32.4-35.8); MEAN CORPUSCULAR VOLUME 94.2 fL (80-100); MEAN PLATELET VOLUME 6.4 fL (7.4-10.4); MONOCYTES % (AUTO) 13 % (2-9); NEUTROPHILS # (AUTO) 3.05 x10^3/uL (1.8-6.8); NEUTROPHILS % (AUTO) 55 % (42-75); PLATELET COUNT 209 x10^3/uL (130-400); RED BLOOD COUNT 4.09 x10^6/uL (3.82-5.3); RED CELL DISTRIBUTION WIDTH 15.6 % (9.6-15.2)
[2019-12-06 22:30] LABS: ALBUMIN 2.8 g/dL (3.4-5.0); ANION GAP 8 mmol/L (5-15); CALCIUM 8.5 mg/dL (8.5-10.1); CHLORIDE 109 mmol/L (98-107); CREATININE 1.32 mg/dL (0.55-1.02)
[2019-12-06 22:34] LABS: TROPONIN I < 0.015 ng/mL (0.000-0.045)
--- NOTE | 2019-12-06 22:58 | NUR ---
Patient/Caregiver given discharge instructions and they have confirmed that they understand the instructions. Patient ambulatory with steady gait.
== END 2019-12-06 23:00 | disposition home or self-care (01) ==
LOC: ED 22:28
DX: R07.89 Other chest pain (principal); R06.02 Shortness of breath; R11.0 Nausea; R94.31 Abnormal electrocardiogram [ECG] [EKG]; E11.9 Type 2 diabetes mellitus without complications; I10 Essential (primary) hypertension; J44.9 Chronic obstructive pulmonary disease, unspecified; Z98.61 Coronary angioplasty status
CPT/HCPCS: 36415; 71045; 80048; 82040; 84484; 85025; 93005; 99285

== ENCOUNTER 2020-01-22 17:56 | Emergency (ER) | payer MEDICARE, MEDICAID ==
[~2020-01-22] VITALS: Ht 157.5 cm; Wt 78.0 kg
[2020-01-22 17:57] VITALS: BP 149/91
[2020-01-22 18:50] LABS: BASOPHILS % (AUTO) 1 % (0-1); EOSINOPHILS % (AUTO) 2 % (1-7); LYMPHOCYTES % (AUTO) 35 % (22-44); MEAN CORPUSCULAR HEMOGLOBIN 32.1 pg (27.0-34.8); MEAN CORPUSCULAR HGB CONC 34.1 g/dL (32.4-35.8); MEAN PLATELET VOLUME 7.2 fL (7.4-10.4); MONOCYTES % (AUTO) 15 % (2-9); NEUTROPHILS % (AUTO) 48 % (42-75); PLATELET COUNT 166 x10^3/uL (130-400); RED BLOOD COUNT 4.74 x10^6/uL (3.82-5.3); RED CELL DISTRIBUTION WIDTH 15.5 % (9.6-15.2)
--- NOTE | 2020-01-22 18:54 | NUR ---
PT AMBULATED TO RESTROOM WITH STEADY GAIT TO PROVIDE URINE SAMPLE. UA COLLECTED AND TAKEN TO LAB.
[2020-01-22 18:57] LABS: MD NO
--- NOTE | 2020-01-22 18:57 | NUR ---
PT ONE BAG BELONGINGS PLACED IN LOCKER. ROOM SECURE. PT IN DIRECT SIGHT OF SITTER.
[2020-01-22 18:59] LABS: ALBUMIN 3.3 g/dL (3.4-5.0); ANION GAP 6 mmol/L (5-15); CALCIUM 8.8 mg/dL (8.5-10.1); CHLORIDE 107 mmol/L (98-107); SALICYLATE LEVEL 3.7 mg/dL (2.8-20.0)
[2020-01-22 19:02] LABS: ALANINE AMINOTRANSFERASE 18 U/L (12-78); ALKALINE PHOSPHATASE 91 U/L (45-117); BILIRUBIN,TOTAL 0.5 mg/dL (0.2-1.0); CREATININE 1.13 mg/dL (0.55-1.02); TOTAL PROTEIN 6.5 g/dL (6.4-8.2)
[2020-01-22 19:14] LABS: AMPHETAMINE SCREEN, URINE Negative (Negative); BARBITURATE SCREEN, URINE Negative (Negative); BENZODIAZEPINE SCREEN, URINE Negative (Negative); CANNABINOID SCREEN, URINE Negative (Negative); COCAINE SCREEN, URINE Negative (Negative); METHADONE SCREEN, URINE Negative (Negative); OPIATE SCREEN, URINE Negative (Negative)
--- NOTE | 2020-01-22 19:21 | NUR ---
PER MD, PT MEDICALLY CLEARED. NOW ON LEGAL HOLD.
--- NOTE | 2020-01-22 19:25 | NUR ---
THROUGHPUT: DSICUSSED POSSIBLE PT ADMIT WITH [facility], WILL CALL BACK WITH DECISION.
--- NOTE | 2020-01-22 21:16 | NUR ---
PT RESTING ON GURNEY. RESP EVEN AND UNLABORED. PT IN DIRECT SIGHT OF SITTERS.
--- NOTE | 2020-01-22 21:43 | NUR ---
THROUGHPUT: PACKET FAXED TO [facility] [place]
--- NOTE | 2020-01-22 22:07 | NUR ---
THROUGHPUT: BHU TO TAKE PT PER RUTH
--- NOTE | 2020-01-22 22:41 | NUR ---
REPORT GIVEN TO RUTH RENDON IN [facility].
== END 2020-01-22 23:01 ==
LOC: ED 19:14
DX: F25.9 Schizoaffective disorder, unspecified (principal); R45.851 Suicidal ideations; F39 Unspecified mood [affective] disorder; I10 Essential (primary) hypertension; E11.9 Type 2 diabetes mellitus without complications; K21.9 Gastro-esophageal reflux disease without esophagitis; J44.9 Chronic obstructive pulmonary disease, unspecified; I25.10 Atherosclerotic heart disease of native coronary artery without angina pectoris; Z86.39 Personal history of other endocrine, nutritional and metabolic disease
CPT/HCPCS: 36415; 80053; 80307; 85025; 99285

== ENCOUNTER 2020-04-14 16:12 | Emergency (ER) | payer MEDICARE, MEDICAID ==
[~2020-04-14] VITALS: Ht 162.6 cm; Wt 74.0 kg
[~2020-04-14 16:12] MED LIST changes: -NICO-487 TD; +NICO-587 TD
[2020-04-14] MEDS ORDERED: ASPIRIN 81 MG TABLET EC ONE (16:44)
[2020-04-14] MEDS ORDERED: ASPIRIN 81 MG TABLET CHEW ONE (16:47)
[2020-04-14 16:53] LABS: BASOPHILS % (AUTO) 1 % (0-1); EOSINOPHILS % (AUTO) 1 % (1-7); LYMPHOCYTES % (AUTO) 33 % (22-44); MD NO; MEAN PLATELET VOLUME 6.9 fL (7.4-10.4); MONOCYTES % (AUTO) 16 % (2-9); NEUTROPHILS % (AUTO) 49 % (42-75); PLATELET COUNT 167 x10^3/uL (130-400); RED BLOOD COUNT 4.58 x10^6/uL (3.82-5.3); RED CELL DISTRIBUTION WIDTH 15.7 % (9.6-15.2)
[2020-04-14] MEDS ORDERED: ASPIRIN 81 MG TABLET CHEW PO ONE (17:00)
[2020-04-14 17:04] LABS: ALBUMIN 3.1 g/dL (3.4-5.0); ANION GAP 6 mmol/L (5-15); CHLORIDE 111 mmol/L (98-107); CREATININE 1.18 mg/dL (0.55-1.02)
[2020-04-14 17:08] LABS: TROPONIN I < 0.015 ng/mL (0.000-0.045)
[2020-04-14 20:48] LABS: TROPONIN I < 0.015 ng/mL (0.000-0.045)
[2020-04-14 21:11] VITALS: BP 145/76
== END 2020-04-14 21:26 | disposition home or self-care (01) ==
LOC: ED 19:40
DX: R07.89 Other chest pain (principal); I10 Essential (primary) hypertension; E11.9 Type 2 diabetes mellitus without complications; J44.9 Chronic obstructive pulmonary disease, unspecified; I25.10 Atherosclerotic heart disease of native coronary artery without angina pectoris; F17.200 Nicotine dependence, unspecified, uncomplicated; Z86.39 Personal history of other endocrine, nutritional and metabolic disease
CPT/HCPCS: 36415; 71045; 80048; 82040; 84484; 85025; 93005; 99285

== ENCOUNTER 2020-05-01 16:54 | Emergency (ER) | payer MEDICARE, MEDICAID ==
[~2020-05-01] VITALS: Ht 162.6 cm; Wt 71.8 kg
[~2020-05-01 16:54] MED LIST changes: -ESCI10TA PO; +ESCI10TA5 PO
[2020-05-01 17:58] LABS: BASOPHILS % (AUTO) 1 % (0-1); EOSINOPHILS % (AUTO) 3 % (1-7); LYMPHOCYTES % (AUTO) 33 % (22-44); MEAN CORPUSCULAR HEMOGLOBIN 32.4 pg (27.0-34.8); MEAN CORPUSCULAR HGB CONC 34.3 g/dL (32.4-35.8); MEAN PLATELET VOLUME 7.3 fL (7.4-10.4); MONOCYTES % (AUTO) 17 % (2-9); NEUTROPHILS % (AUTO) 46 % (42-75); PLATELET COUNT 157 x10^3/uL (130-400); RED CELL DISTRIBUTION WIDTH 14.9 % (9.6-15.2)
[2020-05-01 17:59] LABS: MD NO
[2020-05-01 18:09] LABS: ALBUMIN 3.1 g/dL (3.4-5.0); ANION GAP 5 mmol/L (5-15); CALCIUM 8.8 mg/dL (8.5-10.1); CHLORIDE 111 mmol/L (98-107); CREATININE 1.06 mg/dL (0.55-1.02)
[2020-05-01 18:13] LABS: TROPONIN I < 0.015 ng/mL (0.000-0.045)
--- NOTE | 2020-05-01 18:35 | NUR ---
PT TO BR INDEPENDENTLY
--- NOTE | 2020-05-01 19:21 | NUR ---
First contact with patient to discharge. IV dc cath intact, VSS. Pt dc home ambulatory with all belongings. Pt verbalizes understanding of instruct and f/u. To return to ER if worse or concerns.
[2020-05-01 19:22] VITALS: BP 125/71
== END 2020-05-01 19:28 | disposition home or self-care (01) ==
LOC: ED 17:30
DX: R07.89 Other chest pain (principal); M94.0 Chondrocostal junction syndrome [Tietze]; R11.2 Nausea with vomiting, unspecified; I11.0 Hypertensive heart disease with heart failure; E03.9 Hypothyroidism, unspecified; K21.9 Gastro-esophageal reflux disease without esophagitis; E11.9 Type 2 diabetes mellitus without complications; J44.9 Chronic obstructive pulmonary disease, unspecified; Z98.61 Coronary angioplasty status
CPT/HCPCS: 36415; 71045; 80048; 82040; 84484; 85025; 93005; 99285

== ENCOUNTER 2020-05-03 19:31 | Emergency (ER) | payer MEDICARE, MEDICAID ==
[~2020-05-03] VITALS: Ht 172.7 cm; Wt 77.1 kg
[2020-05-03 19:39] VITALS: BP 120/75
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
--- NOTE | 2020-05-03 21:16 | NUR ---
PT AMBULATED TO DISCHARGE WITH STEADY GAIT. PT ENCOURAGED TO FOLLOWUP DISCUSSED. PT EDUCATED TO RETURN TO ED WITH WORSENING SYMPTOMS. TAXI VOUCHER GIVEN
== END 2020-05-03 21:18 | disposition home or self-care (01) ==
LOC: ED 21:00
DX: R07.89 Other chest pain (principal); F25.9 Schizoaffective disorder, unspecified; Z72.9 Problem related to lifestyle, unspecified
CPT/HCPCS: 99281

== ENCOUNTER 2020-06-13 23:59 | Inpatient (IN) | payer MEDICARE, MEDICAID ==
[~2020-06-13] VITALS: Ht 162.6 cm; Wt 86.2 kg
[~2020-06-13 23:59] MED LIST changes: -ESCI10TA5 PO; +ESCI10TA97 PO
[2020-06-14] MEDS ORDERED: ONDANSETRON ODT 4 MG PO PRN (00:30)
[2020-06-14] MEDS ORDERED: BISACODYL 10 MG SUPP PR PRN (00:30)
[2020-06-14 03:37] VITALS: BP 125/85
[2020-06-14 03:42] VITALS: BP 125/85
[2020-06-14] MEDS: LEVOTHYROXINE 75 MCG TABLET PO SCH (05:28)
[2020-06-14 07:41] LABS: CHOL/HDL RATIO 2.1; FREE T4 (FREE THYROXINE) 1.08 ng/dL (0.76-1.46); LDL/HDL RATIO 0.7 (0.5-3.0)
[2020-06-14 07:56] VITALS: BP 115/79
[2020-06-14] MEDS: NICOTINE 14MG/24 HR PATCH.TD24 TD SCH (08:59)
[2020-06-14] MEDS: GABAPENTIN 100 MG CAPSULE PO SCH ×2 (09:00→20:22)
[2020-06-14] MEDS: OLANZAPINE 10 MG TABLET PO SCH (09:00)
[2020-06-14] MEDS: DIVALPROEX 250 MG TAB.ER.24H PO SCH (09:00)
[2020-06-14] MEDS: CETIRIZINE 10 MG TABLET PO SCH (09:00)
[2020-06-14] MEDS: BENZTROPINE 1 MG TABLET PO SCH ×2 (09:00→20:23)
[2020-06-14 15:00] LABS: MICROSCOPIC NOT IND
[2020-06-14] MEDS: POLYETHYLENE GLYCOL 17 GM PACKET PO PRN (15:57)
[2020-06-14] MEDS ORDERED: GABA-826 PO (18:04)
[2020-06-14] MEDS ORDERED: ATOR40TA78 PO (18:07)
[2020-06-14] MEDS ORDERED: OLAN10VI PO (18:07)
[2020-06-14 19:10] VITALS: BP 130/76
[2020-06-14] MEDS: TRAZODONE 100MG TABLET PO SCH (20:22)
[2020-06-14] MEDS: ATORVASTATIN 40 MG TABLET PO SCH (20:22)
[2020-06-14] MEDS: DIVALPROEX 500 MG TAB.ER.24H PO SCH (20:22)
[2020-06-15] MEDS: LEVOTHYROXINE 75 MCG TABLET PO SCH (05:47)
[2020-06-15 05:59] LABS: BASOPHILS % (AUTO) 1 % (0-1); EOSINOPHILS % (AUTO) 2 % (1-7); LYMPHOCYTES % (AUTO) 22 % (22-44); MEAN CORPUSCULAR HEMOGLOBIN 32.1 pg (27.0-34.8); MEAN CORPUSCULAR HGB CONC 34.1 g/dL (32.4-35.8); MEAN PLATELET VOLUME 6.9 fL (7.4-10.4); MONOCYTES % (AUTO) 15 % (2-9); NEUTROPHILS % (AUTO) 60 % (42-75); PLATELET COUNT 160 x10^3/uL (130-400); RED BLOOD COUNT 4.58 x10^6/uL (3.82-5.3); RED CELL DISTRIBUTION WIDTH 14.6 % (9.6-15.2)
[2020-06-15 06:03] LABS: MD NO
[2020-06-15 06:11] LABS: ANION GAP 7 mmol/L (5-15); CALCIUM 8.9 mg/dL (8.5-10.1); CHLORIDE 113 mmol/L (98-107); CREATININE 1.02 mg/dL (0.55-1.02)
[2020-06-15 07:18] VITALS: BP 109/72
[2020-06-15] MEDS: BENZTROPINE 1 MG TABLET PO SCH ×2 (08:30→20:27)
[2020-06-15] MEDS: NICOTINE 14MG/24 HR PATCH.TD24 TD SCH (08:30)
[2020-06-15] MEDS: CETIRIZINE 10 MG TABLET PO SCH (08:30)
[2020-06-15] MEDS: OLANZAPINE 10 MG TABLET PO SCH (08:30)
[2020-06-15] MEDS: DIVALPROEX 250 MG TAB.ER.24H PO SCH (08:30)
[2020-06-15] MEDS: GABAPENTIN 100 MG CAPSULE PO SCH ×2 (08:30→20:26)
[2020-06-15] MEDS: DOCUSATE 100 MG CAPSULE PO PRN (09:36)
[2020-06-15] MEDS: POLYETHYLENE GLYCOL 17 GM PACKET PO PRN (18:02)
[2020-06-15 19:30] VITALS: BP 128/81
[2020-06-15] MEDS: TRAZODONE 100MG TABLET PO SCH (20:26)
[2020-06-15] MEDS: ATORVASTATIN 40 MG TABLET PO SCH (20:26)
[2020-06-15] MEDS: DIVALPROEX 500 MG TAB.ER.24H PO SCH (20:26)
[2020-06-16] MEDS: LEVOTHYROXINE 75 MCG TABLET PO SCH (06:08)
[2020-06-16 07:25] VITALS: BP 103/71
[2020-06-16] MEDS: DIVALPROEX 250 MG TAB.ER.24H PO SCH (08:24)
[2020-06-16] MEDS: NICOTINE 14MG/24 HR PATCH.TD24 TD SCH (08:24)
[2020-06-16] MEDS: POLYETHYLENE GLYCOL 17 GM PACKET PO PRN (08:24)
[2020-06-16] MEDS: GABAPENTIN 100 MG CAPSULE PO SCH ×2 (08:25→20:42)
[2020-06-16] MEDS: BENZTROPINE 1 MG TABLET PO SCH ×2 (08:25→20:42)
[2020-06-16] MEDS: OLANZAPINE 10 MG TABLET PO SCH (08:25)
[2020-06-16] MEDS: CETIRIZINE 10 MG TABLET PO SCH (08:25)
[2020-06-16] MEDS: ACETAMINOPHEN 325 MG TABLET PO PRN (12:30)
[2020-06-16 19:20] VITALS: BP 99/68
[2020-06-16] MEDS: DIVALPROEX 500 MG TAB.ER.24H PO SCH (20:42)
[2020-06-16] MEDS: ATORVASTATIN 40 MG TABLET PO SCH (20:42)
[2020-06-16] MEDS: TRAZODONE 100MG TABLET PO SCH (20:42)
[2020-06-17] MEDS: LEVOTHYROXINE 75 MCG TABLET PO SCH (06:16)
[2020-06-17 07:35] VITALS: BP 124/75
[2020-06-17] MEDS: GABAPENTIN 100 MG CAPSULE PO SCH ×2 (08:35→20:15)
[2020-06-17] MEDS: OLANZAPINE 10 MG TABLET PO SCH (08:35)
[2020-06-17] MEDS: POLYETHYLENE GLYCOL 17 GM PACKET PO PRN (08:35)
[2020-06-17] MEDS: BENZTROPINE 1 MG TABLET PO SCH ×2 (08:35→20:16)
[2020-06-17] MEDS: CETIRIZINE 10 MG TABLET PO SCH (08:36)
[2020-06-17] MEDS: DIVALPROEX 250 MG TAB.ER.24H PO SCH (08:36)
[2020-06-17] MEDS: NICOTINE 14MG/24 HR PATCH.TD24 TD SCH (08:37)
[2020-06-17] MEDS: ACETAMINOPHEN 325 MG TABLET PO PRN (11:55)
[2020-06-17 19:25] VITALS: BP 110/70
[2020-06-17] MEDS: ATORVASTATIN 40 MG TABLET PO SCH (20:15)
[2020-06-17] MEDS: TRAZODONE 100MG TABLET PO SCH (20:15)
[2020-06-17] MEDS: DIVALPROEX 500 MG TAB.ER.24H PO SCH (20:15)
[2020-06-18] MEDS: ACETAMINOPHEN 325 MG TABLET PO PRN ×3 (00:25→20:15)
[2020-06-18] MEDS: LEVOTHYROXINE 75 MCG TABLET PO SCH (05:56)
[2020-06-18 07:32] VITALS: BP 103/67
[2020-06-18] MEDS: OLANZAPINE 10 MG TABLET PO SCH (08:15)
[2020-06-18] MEDS: DIVALPROEX 250 MG TAB.ER.24H PO SCH (08:15)
[2020-06-18] MEDS: NICOTINE 14MG/24 HR PATCH.TD24 TD SCH (08:15)
[2020-06-18] MEDS: POLYETHYLENE GLYCOL 17 GM PACKET PO PRN (08:15)
[2020-06-18] MEDS: CETIRIZINE 10 MG TABLET PO SCH (08:15)
[2020-06-18] MEDS: GABAPENTIN 100 MG CAPSULE PO SCH ×2 (08:15→20:16)
[2020-06-18] MEDS: BENZTROPINE 1 MG TABLET PO SCH ×2 (08:15→20:15)
[2020-06-18 19:21] VITALS: BP 110/69
[2020-06-18] MEDS: TRAZODONE 100MG TABLET PO SCH (20:15)
[2020-06-18] MEDS: ATORVASTATIN 40 MG TABLET PO SCH (20:15)
[2020-06-18] MEDS: DIVALPROEX 500 MG TAB.ER.24H PO SCH (20:15)
[2020-06-19] MEDS: ACETAMINOPHEN 325 MG TABLET PO PRN ×3 (03:30→13:19)
[2020-06-19] MEDS: LEVOTHYROXINE 75 MCG TABLET PO SCH (05:44)
[2020-06-19 07:19] VITALS: BP 105/58
[2020-06-19] MEDS: NICOTINE 14MG/24 HR PATCH.TD24 TD SCH (08:57)
[2020-06-19] MEDS: OLANZAPINE 10 MG TABLET PO SCH (08:57)
[2020-06-19] MEDS: GABAPENTIN 100 MG CAPSULE PO SCH ×2 (08:57→20:21)
[2020-06-19] MEDS: DIVALPROEX 250 MG TAB.ER.24H PO SCH (08:57)
[2020-06-19] MEDS: BENZTROPINE 1 MG TABLET PO SCH ×2 (08:58→20:21)
[2020-06-19] MEDS: CETIRIZINE 10 MG TABLET PO SCH (08:58)
[2020-06-19] MEDS: POLYETHYLENE GLYCOL 17 GM PACKET PO PRN (08:58)
[2020-06-19 11:43] LABS: ALANINE AMINOTRANSFERASE 12 U/L (12-78); ANION GAP 8 mmol/L (5-15); CALCIUM 9.1 mg/dL (8.5-10.1); CHLORIDE 108 mmol/L (98-107); CREATININE 1.06 mg/dL (0.55-1.02)
[2020-06-19 11:45] LABS: ALKALINE PHOSPHATASE 83 U/L (45-117); BILIRUBIN,TOTAL 0.6 mg/dL (0.2-1.0); CREATINE KINASE, TOTAL 41 U/L (26-192); TOTAL PROTEIN 6.3 g/dL (6.4-8.2)
[2020-06-19] MEDS: MELOXICAM 15 MG TABLET PO SCH (11:51)
[2020-06-19 19:31] VITALS: BP 111/77
[2020-06-19 19:45] VITALS: BP 112/60
[2020-06-19] MEDS: TRAZODONE 100MG TABLET PO SCH (20:21)
[2020-06-19] MEDS: DIVALPROEX 500 MG TAB.ER.24H PO SCH (20:21)
[2020-06-20] MEDS: LEVOTHYROXINE 75 MCG TABLET PO SCH (05:44)
[2020-06-20] MEDS: ACETAMINOPHEN 325 MG TABLET PO PRN ×3 (05:44→18:31)
[2020-06-20 07:59] VITALS: BP 111/83
[2020-06-20] MEDS: POLYETHYLENE GLYCOL 17 GM PACKET PO PRN (08:39)
[2020-06-20] MEDS: OLANZAPINE 10 MG TABLET PO SCH (08:40)
[2020-06-20] MEDS: DIVALPROEX 250 MG TAB.ER.24H PO SCH (08:40)
[2020-06-20] MEDS: MELOXICAM 15 MG TABLET PO SCH (08:40)
[2020-06-20] MEDS: BENZTROPINE 1 MG TABLET PO SCH ×2 (08:40→20:04)
[2020-06-20] MEDS: CETIRIZINE 10 MG TABLET PO SCH (08:40)
[2020-06-20] MEDS: GABAPENTIN 100 MG CAPSULE PO SCH ×2 (08:40→20:04)
[2020-06-20] MEDS: NICOTINE 14MG/24 HR PATCH.TD24 TD SCH (08:42)
[2020-06-20 19:30] VITALS: BP 112/72
[2020-06-20] MEDS: ATORVASTATIN 20 MG TABLET PO SCH (20:04)
[2020-06-20] MEDS: DIVALPROEX 500 MG TAB.ER.24H PO SCH (20:04)
[2020-06-20] MEDS: TRAZODONE 100MG TABLET PO SCH (20:04)
[2020-06-21] MEDS: LEVOTHYROXINE 75 MCG TABLET PO SCH (05:23)
[2020-06-21] MEDS: ACETAMINOPHEN 325 MG TABLET PO PRN ×3 (05:26→18:27)
[2020-06-21 07:24] VITALS: BP 113/79
[2020-06-21] MEDS: DIVALPROEX 250 MG TAB.ER.24H PO SCH (08:27)
[2020-06-21] MEDS: BENZTROPINE 1 MG TABLET PO SCH ×2 (08:27→20:00)
[2020-06-21] MEDS: POLYETHYLENE GLYCOL 17 GM PACKET PO PRN (08:27)
[2020-06-21] MEDS: GABAPENTIN 100 MG CAPSULE PO SCH ×2 (08:27→20:00)
[2020-06-21] MEDS: CETIRIZINE 10 MG TABLET PO SCH (08:27)
[2020-06-21] MEDS: OLANZAPINE 10 MG TABLET PO SCH (08:28)
[2020-06-21] MEDS: MELOXICAM 15 MG TABLET PO SCH (08:28)
[2020-06-21] MEDS: NICOTINE 14MG/24 HR PATCH.TD24 TD SCH (08:29)
[2020-06-21 19:45] VITALS: BP 104/68
[2020-06-21] MEDS: ATORVASTATIN 20 MG TABLET PO SCH (20:00)
[2020-06-21] MEDS: DIVALPROEX 500 MG TAB.ER.24H PO SCH (20:00)
[2020-06-21] MEDS: TRAZODONE 100MG TABLET PO SCH (20:00)
[2020-06-21] MEDS: DOCUSATE 100 MG CAPSULE PO PRN (20:07)
[2020-06-22] MEDS: ACETAMINOPHEN 325 MG TABLET PO PRN ×2 (03:24→08:42)
[2020-06-22] MEDS: LEVOTHYROXINE 75 MCG TABLET PO SCH (05:20)
[2020-06-22 07:30] VITALS: BP 118/72
[2020-06-22] MEDS: DIVALPROEX 250 MG TAB.ER.24H PO SCH (08:42)
[2020-06-22] MEDS: GABAPENTIN 100 MG CAPSULE PO SCH ×4 (08:42→20:45)
[2020-06-22] MEDS: OLANZAPINE 10 MG TABLET PO SCH (08:42)
[2020-06-22] MEDS: MELOXICAM 15 MG TABLET PO SCH (08:42)
[2020-06-22] MEDS: POLYETHYLENE GLYCOL 17 GM PACKET PO PRN (08:42)
[2020-06-22] MEDS: CETIRIZINE 10 MG TABLET PO SCH (08:42)
[2020-06-22] MEDS: BENZTROPINE 1 MG TABLET PO SCH ×2 (08:43→20:45)
[2020-06-22] MEDS: NICOTINE 14MG/24 HR PATCH.TD24 TD SCH (08:43)
[2020-06-22 20:11] VITALS: BP 105/68
[2020-06-22] MEDS: DIVALPROEX 500 MG TAB.ER.24H PO SCH (20:45)
[2020-06-22] MEDS: TRAZODONE 100MG TABLET PO SCH (20:45)
[2020-06-22] MEDS: ATORVASTATIN 20 MG TABLET PO SCH (20:45)
[2020-06-23] MEDS: LEVOTHYROXINE 75 MCG TABLET PO SCH (05:47)
[2020-06-23 07:39] VITALS: BP 100/63
[2020-06-23] MEDS: MELOXICAM 15 MG TABLET PO SCH (08:25)
[2020-06-23] MEDS: OLANZAPINE 10 MG TABLET PO SCH (08:26)
[2020-06-23] MEDS: GABAPENTIN 100 MG CAPSULE PO SCH ×3 (08:27→20:26)
[2020-06-23] MEDS: BENZTROPINE 1 MG TABLET PO SCH ×2 (08:27→20:26)
[2020-06-23] MEDS: DIVALPROEX 250 MG TAB.ER.24H PO SCH (08:27)
[2020-06-23] MEDS: CETIRIZINE 10 MG TABLET PO SCH (08:27)
[2020-06-23] MEDS: NICOTINE 14MG/24 HR PATCH.TD24 TD SCH (08:29)
[2020-06-23] MEDS: POLYETHYLENE GLYCOL 17 GM PACKET PO PRN (09:40)
[2020-06-23] MEDS: ACETAMINOPHEN 325 MG TABLET PO PRN (14:10)
[2020-06-23 19:24] VITALS: BP 100/61
[2020-06-23] MEDS: TRAZODONE 100MG TABLET PO SCH (20:25)
[2020-06-23] MEDS: DIVALPROEX 500 MG TAB.ER.24H PO SCH (20:25)
[2020-06-23] MEDS: ATORVASTATIN 20 MG TABLET PO SCH (20:26)
[2020-06-24] MEDS: LEVOTHYROXINE 75 MCG TABLET PO SCH (06:00)
[2020-06-24 06:25] VITALS: BP 103/60
[2020-06-24] MEDS: GABAPENTIN 100 MG CAPSULE PO SCH ×3 (08:14→20:30)
[2020-06-24] MEDS: DIVALPROEX 250 MG TAB.ER.24H PO SCH (08:14)
[2020-06-24] MEDS: CETIRIZINE 10 MG TABLET PO SCH (08:14)
[2020-06-24] MEDS: BENZTROPINE 1 MG TABLET PO SCH ×2 (08:14→20:30)
[2020-06-24] MEDS: MELOXICAM 15 MG TABLET PO SCH (08:14)
[2020-06-24] MEDS: OLANZAPINE 10 MG TABLET PO SCH (08:14)
[2020-06-24] MEDS: NICOTINE 14MG/24 HR PATCH.TD24 TD SCH (08:15)
[2020-06-24] MEDS: POLYETHYLENE GLYCOL 17 GM PACKET PO PRN (09:07)
[2020-06-24 20:01] VITALS: BP 105/86
[2020-06-24] MEDS: TRAZODONE 100MG TABLET PO SCH (20:30)
[2020-06-24] MEDS: ATORVASTATIN 20 MG TABLET PO SCH (20:30)
[2020-06-24] MEDS: DIVALPROEX 500 MG TAB.ER.24H PO SCH (20:31)
[2020-06-25] MEDS: LEVOTHYROXINE 75 MCG TABLET PO SCH (06:07)
[2020-06-25 07:32] VITALS: BP 97/66
[2020-06-25] MEDS: CETIRIZINE 10 MG TABLET PO SCH (08:31)
[2020-06-25] MEDS: OLANZAPINE 10 MG TABLET PO SCH (08:31)
[2020-06-25] MEDS: GABAPENTIN 100 MG CAPSULE PO SCH ×3 (08:32→20:36)
[2020-06-25] MEDS: DIVALPROEX 250 MG TAB.ER.24H PO SCH (08:32)
[2020-06-25] MEDS: BENZTROPINE 1 MG TABLET PO SCH ×2 (08:33→20:37)
[2020-06-25] MEDS: NICOTINE 14MG/24 HR PATCH.TD24 TD SCH (08:34)
[2020-06-25] MEDS: POLYETHYLENE GLYCOL 17 GM PACKET PO PRN (08:39)
[2020-06-25 19:40] VITALS: BP 107/72
[2020-06-25] MEDS: ACETAMINOPHEN 325 MG TABLET PO PRN (20:36)
[2020-06-25] MEDS: ATORVASTATIN 20 MG TABLET PO SCH (20:37)
[2020-06-25] MEDS: DIVALPROEX 500 MG TAB.ER.24H PO SCH (20:37)
[2020-06-25] MEDS: TRAZODONE 100MG TABLET PO SCH (20:37)
[2020-06-26] MEDS: LEVOTHYROXINE 75 MCG TABLET PO SCH (05:44)
[2020-06-26 07:56] VITALS: BP 112/73
[2020-06-26] MEDS: NICOTINE 14MG/24 HR PATCH.TD24 TD SCH (08:57)
[2020-06-26] MEDS: GABAPENTIN 100 MG CAPSULE PO SCH ×3 (08:57→20:50)
[2020-06-26] MEDS: BENZTROPINE 1 MG TABLET PO SCH ×2 (08:57→20:49)
[2020-06-26] MEDS: OLANZAPINE 10 MG TABLET PO SCH (08:57)
[2020-06-26] MEDS: DIVALPROEX 250 MG TAB.ER.24H PO SCH (08:57)
[2020-06-26] MEDS: CETIRIZINE 10 MG TABLET PO SCH (08:57)
[2020-06-26] MEDS: ACETAMINOPHEN 325 MG TABLET PO PRN (16:27)
[2020-06-26] MEDS: POLYETHYLENE GLYCOL 17 GM PACKET PO PRN (16:44)
[2020-06-26 19:50] VITALS: BP 111/76
[2020-06-26] MEDS: TRAZODONE 100MG TABLET PO SCH (20:49)
[2020-06-26] MEDS: DIVALPROEX 500 MG TAB.ER.24H PO SCH (20:49)
[2020-06-26] MEDS: ATORVASTATIN 20 MG TABLET PO SCH (20:49)
[2020-06-27] MEDS: LEVOTHYROXINE 75 MCG TABLET PO SCH (04:34)
[2020-06-27 07:44] VITALS: BP 95/66
[2020-06-27] MEDS: GABAPENTIN 100 MG CAPSULE PO SCH ×3 (08:44→20:23)
[2020-06-27] MEDS: DIVALPROEX 250 MG TAB.ER.24H PO SCH (08:44)
[2020-06-27] MEDS: OLANZAPINE 10 MG TABLET PO SCH (08:44)
[2020-06-27] MEDS: BENZTROPINE 1 MG TABLET PO SCH ×2 (08:44→20:23)
[2020-06-27] MEDS: CETIRIZINE 10 MG TABLET PO SCH (08:44)
[2020-06-27] MEDS: NICOTINE 14MG/24 HR PATCH.TD24 TD SCH (08:45)
[2020-06-27 20:11] VITALS: BP 111/71
[2020-06-27] MEDS: ATORVASTATIN 20 MG TABLET PO SCH (20:23)
[2020-06-27] MEDS: TRAZODONE 100MG TABLET PO SCH (20:23)
[2020-06-27] MEDS: DIVALPROEX 500 MG TAB.ER.24H PO SCH (20:23)
[2020-06-27] MEDS: ACETAMINOPHEN 325 MG TABLET PO PRN (20:23)
[2020-06-28] MEDS: LEVOTHYROXINE 75 MCG TABLET PO SCH (05:40)
[2020-06-28 07:39] VITALS: BP 90/62
[2020-06-28] MEDS: CETIRIZINE 10 MG TABLET PO SCH (08:28)
[2020-06-28] MEDS: DIVALPROEX 250 MG TAB.ER.24H PO SCH (08:28)
[2020-06-28] MEDS: OLANZAPINE 10 MG TABLET PO SCH (08:29)
[2020-06-28] MEDS: GABAPENTIN 100 MG CAPSULE PO SCH ×3 (08:29→20:32)
[2020-06-28] MEDS: BENZTROPINE 1 MG TABLET PO SCH ×2 (08:30→20:32)
[2020-06-28] MEDS: NICOTINE 14MG/24 HR PATCH.TD24 TD SCH (08:30)
[2020-06-28] MEDS: POLYETHYLENE GLYCOL 17 GM PACKET PO PRN (09:38)
[2020-06-28 19:30] VITALS: BP 97/66
[2020-06-28] MEDS: TRAZODONE 100MG TABLET PO SCH (20:25)
[2020-06-28] MEDS: ATORVASTATIN 20 MG TABLET PO SCH (20:31)
[2020-06-28] MEDS: DIVALPROEX 500 MG TAB.ER.24H PO SCH (20:32)
[2020-06-28] MEDS ORDERED: TRAZODONE 50MG TABLET PO ONE (23:00)
[2020-06-29] MEDS: LEVOTHYROXINE 75 MCG TABLET PO SCH (06:00)
[2020-06-29 07:48] VITALS: BP 102/69
[2020-06-29] MEDS: GABAPENTIN 100 MG CAPSULE PO SCH ×3 (08:33→20:28)
[2020-06-29] MEDS: NICOTINE 14MG/24 HR PATCH.TD24 TD SCH (08:33)
[2020-06-29] MEDS: CETIRIZINE 10 MG TABLET PO SCH (08:34)
[2020-06-29] MEDS: POLYETHYLENE GLYCOL 17 GM PACKET PO PRN (08:34)
[2020-06-29] MEDS: OLANZAPINE 10 MG TABLET PO SCH (08:34)
[2020-06-29] MEDS: BENZTROPINE 1 MG TABLET PO SCH ×2 (08:34→20:29)
[2020-06-29] MEDS: DIVALPROEX 250 MG TAB.ER.24H PO SCH (08:34)
[2020-06-29 20:22] VITALS: BP 104/68
[2020-06-29] MEDS: ATORVASTATIN 20 MG TABLET PO SCH (20:29)
[2020-06-29] MEDS: TRAZODONE 100MG TABLET PO SCH (20:29)
[2020-06-29] MEDS: DIVALPROEX 500 MG TAB.ER.24H PO SCH (20:29)
[2020-06-30] MEDS: LEVOTHYROXINE 75 MCG TABLET PO SCH (05:15)
[2020-06-30 07:05] VITALS: BP 93/66
[2020-06-30] MEDS: DOCUSATE 100 MG CAPSULE PO PRN (08:19)
[2020-06-30] MEDS: DIVALPROEX 250 MG TAB.ER.24H PO SCH (08:19)
[2020-06-30] MEDS: ACETAMINOPHEN 325 MG TABLET PO PRN (08:19)
[2020-06-30] MEDS: CETIRIZINE 10 MG TABLET PO SCH (08:19)
[2020-06-30] MEDS: GABAPENTIN 100 MG CAPSULE PO SCH ×3 (08:19→21:45)
[2020-06-30] MEDS: OLANZAPINE 10 MG TABLET PO SCH (08:19)
[2020-06-30] MEDS: BENZTROPINE 1 MG TABLET PO SCH ×2 (08:20→21:45)
[2020-06-30] MEDS: NICOTINE 14MG/24 HR PATCH.TD24 TD SCH (08:20)
[2020-06-30] MEDS: POLYETHYLENE GLYCOL 17 GM PACKET PO PRN (12:56)
[2020-06-30 18:35] VITALS: BP 94/60
[2020-06-30] MEDS: ATORVASTATIN 20 MG TABLET PO SCH (21:45)
[2020-06-30] MEDS: DIVALPROEX 500 MG TAB.ER.24H PO SCH (21:45)
[2020-06-30] MEDS: TRAZODONE 100MG TABLET PO SCH (21:45)
[2020-07-01] MEDS: LEVOTHYROXINE 75 MCG TABLET PO SCH (05:48)
[2020-07-01 07:43] VITALS: BP 102/60
[2020-07-01] MEDS: GABAPENTIN 100 MG CAPSULE PO SCH ×3 (08:31→20:46)
[2020-07-01] MEDS: BENZTROPINE 1 MG TABLET PO SCH ×2 (08:31→20:46)
[2020-07-01] MEDS: CETIRIZINE 10 MG TABLET PO SCH (08:31)
[2020-07-01] MEDS: DIVALPROEX 250 MG TAB.ER.24H PO SCH (08:31)
[2020-07-01] MEDS: OLANZAPINE 10 MG TABLET PO SCH (08:31)
[2020-07-01] MEDS: NICOTINE 14MG/24 HR PATCH.TD24 TD SCH (08:33)
[2020-07-01] MEDS: POLYETHYLENE GLYCOL 17 GM PACKET PO PRN (08:39)
[2020-07-01 19:31] VITALS: BP 109/70
[2020-07-01] MEDS: TRAZODONE 100MG TABLET PO SCH (20:46)
[2020-07-01] MEDS: DIVALPROEX 500 MG TAB.ER.24H PO SCH (20:46)
[2020-07-01] MEDS: ATORVASTATIN 20 MG TABLET PO SCH (20:46)
[2020-07-02] MEDS: LEVOTHYROXINE 75 MCG TABLET PO SCH (05:49)
[2020-07-02 07:49] VITALS: BP 102/68
[2020-07-02] MEDS: DIVALPROEX 250 MG TAB.ER.24H PO SCH (08:40)
[2020-07-02] MEDS: GABAPENTIN 100 MG CAPSULE PO SCH ×3 (08:40→20:11)
[2020-07-02] MEDS: OLANZAPINE 10 MG TABLET PO SCH (08:40)
[2020-07-02] MEDS: CETIRIZINE 10 MG TABLET PO SCH (08:41)
[2020-07-02] MEDS: BENZTROPINE 1 MG TABLET PO SCH ×2 (08:41→20:13)
[2020-07-02] MEDS: POLYETHYLENE GLYCOL 17 GM PACKET PO PRN (08:49)
[2020-07-02] MEDS: NICOTINE 14MG/24 HR PATCH.TD24 TD SCH (08:57)
[2020-07-02] MEDS: ACETAMINOPHEN 325 MG TABLET PO PRN (16:37)
[2020-07-02 19:33] VITALS: BP 114/77
[2020-07-02] MEDS: ATORVASTATIN 20 MG TABLET PO SCH (20:12)
[2020-07-02] MEDS: TRAZODONE 100MG TABLET PO SCH (20:12)
[2020-07-02] MEDS: DIVALPROEX 500 MG TAB.ER.24H PO SCH (20:12)
[2020-07-02 20:38] VITALS: BP 117/84
[2020-07-03] MEDS: LEVOTHYROXINE 75 MCG TABLET PO SCH (06:30)
[2020-07-03 08:04] VITALS: BP 117/78
[2020-07-03] MEDS: DIVALPROEX 250 MG TAB.ER.24H PO SCH (08:56)
[2020-07-03] MEDS: OLANZAPINE 10 MG TABLET PO SCH (08:56)
[2020-07-03] MEDS: GABAPENTIN 100 MG CAPSULE PO SCH ×3 (08:57→21:01)
[2020-07-03] MEDS: BENZTROPINE 1 MG TABLET PO SCH ×2 (08:57→21:01)
[2020-07-03] MEDS: CETIRIZINE 10 MG TABLET PO SCH (08:57)
[2020-07-03] MEDS: NICOTINE 14MG/24 HR PATCH.TD24 TD SCH (08:58)
[2020-07-03] MEDS: POLYETHYLENE GLYCOL 17 GM PACKET PO PRN (11:57)
[2020-07-03 20:00] VITALS: BP 112/80
[2020-07-03] MEDS: TRAZODONE 100MG TABLET PO SCH (21:01)
[2020-07-03] MEDS: DIVALPROEX 500 MG TAB.ER.24H PO SCH (21:01)
[2020-07-03] MEDS: ATORVASTATIN 20 MG TABLET PO SCH (21:01)
[2020-07-04] MEDS: LEVOTHYROXINE 75 MCG TABLET PO SCH (06:02)
[2020-07-04 07:36] VITALS: BP 94/65
[2020-07-04] MEDS: NICOTINE 14MG/24 HR PATCH.TD24 TD SCH (08:32)
[2020-07-04] MEDS: CETIRIZINE 10 MG TABLET PO SCH (08:32)
[2020-07-04] MEDS: OLANZAPINE 10 MG TABLET PO SCH (08:33)
[2020-07-04] MEDS: GABAPENTIN 100 MG CAPSULE PO SCH ×3 (08:33→20:43)
[2020-07-04] MEDS: BENZTROPINE 1 MG TABLET PO SCH ×2 (08:33→20:43)
[2020-07-04] MEDS: DIVALPROEX 250 MG TAB.ER.24H PO SCH (08:33)
[2020-07-04] MEDS: POLYETHYLENE GLYCOL 17 GM PACKET PO PRN (11:38)
[2020-07-04 15:40] VITALS: BP 98/63
[2020-07-04 16:29] LABS: TROPONIN I < 0.015 ng/mL (0.000-0.045)
[2020-07-04 19:30] VITALS: BP 97/60
[2020-07-04] MEDS: DIVALPROEX 500 MG TAB.ER.24H PO SCH (20:43)
[2020-07-04] MEDS: ATORVASTATIN 20 MG TABLET PO SCH (20:43)
[2020-07-04] MEDS: TRAZODONE 100MG TABLET PO SCH (20:43)
[2020-07-04 21:02] VITALS: BP 100/65
[2020-07-05] MEDS: LEVOTHYROXINE 75 MCG TABLET PO SCH (06:22)
[2020-07-05 07:00] VITALS: BP 113/72
[2020-07-05] MEDS: BENZTROPINE 1 MG TABLET PO SCH ×2 (08:26→20:03)
[2020-07-05] MEDS: DIVALPROEX 250 MG TAB.ER.24H PO SCH (08:26)
[2020-07-05] MEDS: GABAPENTIN 100 MG CAPSULE PO SCH ×3 (08:26→20:02)
[2020-07-05] MEDS: CETIRIZINE 10 MG TABLET PO SCH (08:26)
[2020-07-05] MEDS: OLANZAPINE 10 MG TABLET PO SCH (08:26)
[2020-07-05] MEDS: NICOTINE 14MG/24 HR PATCH.TD24 TD SCH (08:27)
[2020-07-05] MEDS: POLYETHYLENE GLYCOL 17 GM PACKET PO PRN (12:30)
[2020-07-05] MEDS: ACETAMINOPHEN 325 MG TABLET PO PRN (18:46)
[2020-07-05 19:30] VITALS: BP 102/70
[2020-07-05] MEDS: TRAZODONE 100MG TABLET PO SCH (20:02)
[2020-07-05] MEDS: DIVALPROEX 500 MG TAB.ER.24H PO SCH (20:02)
[2020-07-05] MEDS: ATORVASTATIN 20 MG TABLET PO SCH (20:02)
[2020-07-05] MEDS ORDERED: MELATONIN 3 MG TABLET ONE (21:20)
[2020-07-06] MEDS: LEVOTHYROXINE 75 MCG TABLET PO SCH (05:49)
[2020-07-06 07:33] VITALS: BP 111/75
[2020-07-06] MEDS: BENZTROPINE 1 MG TABLET PO SCH ×2 (08:13→20:40)
[2020-07-06] MEDS: GABAPENTIN 100 MG CAPSULE PO SCH ×3 (08:13→20:38)
[2020-07-06] MEDS: DIVALPROEX 250 MG TAB.ER.24H PO SCH (08:13)
[2020-07-06] MEDS: CETIRIZINE 10 MG TABLET PO SCH (08:13)
[2020-07-06] MEDS: OLANZAPINE 10 MG TABLET PO SCH (08:13)
[2020-07-06] MEDS: NICOTINE 14MG/24 HR PATCH.TD24 TD SCH (08:15)
[2020-07-06] MEDS: POLYETHYLENE GLYCOL 17 GM PACKET PO PRN (12:34)
[2020-07-06 19:33] VITALS: BP 111/71
[2020-07-06] MEDS: ATORVASTATIN 20 MG TABLET PO SCH (20:39)
[2020-07-06] MEDS: DIVALPROEX 500 MG TAB.ER.24H PO SCH (20:39)
[2020-07-06] MEDS: TRAZODONE 100MG TABLET PO SCH (20:39)
[2020-07-06] MEDS: MELATONIN 3 MG TABLET PO PRN (20:39)
[2020-07-07] MEDS: LEVOTHYROXINE 75 MCG TABLET PO SCH (06:08)
[2020-07-07 07:17] VITALS: BP 104/68
[2020-07-07] MEDS: CETIRIZINE 10 MG TABLET PO SCH (08:36)
[2020-07-07] MEDS: NICOTINE 14MG/24 HR PATCH.TD24 TD SCH (08:36)
[2020-07-07] MEDS: OLANZAPINE 10 MG TABLET PO SCH (08:38)
[2020-07-07] MEDS: BENZTROPINE 1 MG TABLET PO SCH ×2 (08:38→21:04)
[2020-07-07] MEDS: GABAPENTIN 100 MG CAPSULE PO SCH ×3 (08:38→21:04)
[2020-07-07] MEDS: DIVALPROEX 250 MG TAB.ER.24H PO SCH (08:38)
[2020-07-07] MEDS: POLYETHYLENE GLYCOL 17 GM PACKET PO PRN (16:33)
[2020-07-07 18:19] VITALS: BP 126/82
[2020-07-07] MEDS: ACETAMINOPHEN 325 MG TABLET PO PRN (21:03)
[2020-07-07] MEDS: TRAZODONE 100MG TABLET PO SCH (21:03)
[2020-07-07] MEDS: MELATONIN 3 MG TABLET PO PRN (21:03)
[2020-07-07] MEDS: DIVALPROEX 500 MG TAB.ER.24H PO SCH (21:03)
[2020-07-07] MEDS: ATORVASTATIN 20 MG TABLET PO SCH (21:04)
[2020-07-08] MEDS: LEVOTHYROXINE 75 MCG TABLET PO SCH (06:18)
[2020-07-08 07:44] VITALS: BP 105/71
[2020-07-08] MEDS: NICOTINE 14MG/24 HR PATCH.TD24 TD SCH (08:43)
[2020-07-08] MEDS: DIVALPROEX 250 MG TAB.ER.24H PO SCH (08:43)
[2020-07-08] MEDS: OLANZAPINE 10 MG TABLET PO SCH (08:43)
[2020-07-08] MEDS: GABAPENTIN 100 MG CAPSULE PO SCH ×3 (08:44→20:45)
[2020-07-08] MEDS: CETIRIZINE 10 MG TABLET PO SCH (08:44)
[2020-07-08] MEDS: BENZTROPINE 1 MG TABLET PO SCH ×2 (08:44→20:45)
[2020-07-08] MEDS: POLYETHYLENE GLYCOL 17 GM PACKET PO PRN (10:37)
[2020-07-08 19:37] VITALS: BP 105/70
[2020-07-08] MEDS: TRAZODONE 100MG TABLET PO SCH (20:45)
[2020-07-08] MEDS: DIVALPROEX 500 MG TAB.ER.24H PO SCH (20:45)
[2020-07-08] MEDS: ATORVASTATIN 20 MG TABLET PO SCH (20:45)
[2020-07-08] MEDS: MELATONIN 3 MG TABLET PO PRN (21:57)
[2020-07-09 07:05] VITALS: BP 114/77
[2020-07-09] MEDS: LEVOTHYROXINE 75 MCG TABLET PO SCH (08:48)
[2020-07-09] MEDS: GABAPENTIN 100 MG CAPSULE PO SCH ×3 (08:49→20:47)
[2020-07-09] MEDS: DIVALPROEX 250 MG TAB.ER.24H PO SCH (08:49)
[2020-07-09] MEDS: OLANZAPINE 10 MG TABLET PO SCH (08:49)
[2020-07-09] MEDS: CETIRIZINE 10 MG TABLET PO SCH (08:49)
[2020-07-09] MEDS: BENZTROPINE 1 MG TABLET PO SCH ×2 (08:49→20:47)
[2020-07-09] MEDS: NICOTINE 14MG/24 HR PATCH.TD24 TD SCH (08:51)
[2020-07-09] MEDS: POLYETHYLENE GLYCOL 17 GM PACKET PO PRN (14:32)
[2020-07-09 19:46] VITALS: BP 106/78
[2020-07-09] MEDS: ATORVASTATIN 20 MG TABLET PO SCH (20:47)
[2020-07-09] MEDS: MELATONIN 3 MG TABLET PO PRN (20:47)
[2020-07-09] MEDS: TRAZODONE 100MG TABLET PO SCH (20:47)
[2020-07-09] MEDS: DIVALPROEX 500 MG TAB.ER.24H PO SCH (20:47)
[2020-07-10] MEDS: LEVOTHYROXINE 75 MCG TABLET PO SCH (05:58)
[2020-07-10 07:52] VITALS: BP 109/71
[2020-07-10] MEDS: DIVALPROEX 250 MG TAB.ER.24H PO SCH (08:55)
[2020-07-10] MEDS: GABAPENTIN 100 MG CAPSULE PO SCH ×3 (08:55→20:13)
[2020-07-10] MEDS: CETIRIZINE 10 MG TABLET PO SCH (08:55)
[2020-07-10] MEDS: OLANZAPINE 10 MG TABLET PO SCH (08:55)
[2020-07-10] MEDS: BENZTROPINE 1 MG TABLET PO SCH ×2 (08:56→20:13)
[2020-07-10] MEDS: NICOTINE 14MG/24 HR PATCH.TD24 TD SCH (08:57)
[2020-07-10] MEDS: POLYETHYLENE GLYCOL 17 GM PACKET PO PRN (14:49)
[2020-07-10 20:05] VITALS: BP 119/79
[2020-07-10] MEDS: DIVALPROEX 500 MG TAB.ER.24H PO SCH (20:12)
[2020-07-10] MEDS: MELATONIN 3 MG TABLET PO PRN (20:12)
[2020-07-10] MEDS: TRAZODONE 100MG TABLET PO SCH (20:12)
[2020-07-10] MEDS: ATORVASTATIN 20 MG TABLET PO SCH (20:13)
[2020-07-11] MEDS: LEVOTHYROXINE 75 MCG TABLET PO SCH (05:46)
[2020-07-11 07:05] VITALS: BP 113/68
[2020-07-11 07:52] VITALS: BP 118/79
[2020-07-11] MEDS: OLANZAPINE 10 MG TABLET PO SCH (08:32)
[2020-07-11] MEDS: DIVALPROEX 250 MG TAB.ER.24H PO SCH (08:32)
[2020-07-11] MEDS: CETIRIZINE 10 MG TABLET PO SCH (08:32)
[2020-07-11] MEDS: GABAPENTIN 100 MG CAPSULE PO SCH ×3 (08:32→20:20)
[2020-07-11] MEDS: NICOTINE 14MG/24 HR PATCH.TD24 TD SCH (08:33)
[2020-07-11] MEDS: BENZTROPINE 1 MG TABLET PO SCH ×2 (08:33→20:18)
[2020-07-11] MEDS: POLYETHYLENE GLYCOL 17 GM PACKET PO PRN (16:07)
[2020-07-11 19:30] VITALS: BP 105/70
[2020-07-11] MEDS: TRAZODONE 100MG TABLET PO SCH (20:18)
[2020-07-11] MEDS: DIVALPROEX 500 MG TAB.ER.24H PO SCH (20:18)
[2020-07-11] MEDS: ATORVASTATIN 20 MG TABLET PO SCH (20:19)
[2020-07-11] MEDS: MELATONIN 3 MG TABLET PO PRN (21:12)
[2020-07-12] MEDS: LEVOTHYROXINE 75 MCG TABLET PO SCH (05:12)
[2020-07-12 07:47] VITALS: BP 125/83
[2020-07-12] MEDS: OLANZAPINE 10 MG TABLET PO SCH (08:35)
[2020-07-12] MEDS: GABAPENTIN 100 MG CAPSULE PO SCH (08:35)
[2020-07-12] MEDS: BENZTROPINE 1 MG TABLET PO SCH (08:35)
[2020-07-12] MEDS: CETIRIZINE 10 MG TABLET PO SCH (08:35)
[2020-07-12] MEDS: DIVALPROEX 250 MG TAB.ER.24H PO SCH (08:35)
[2020-07-12] MEDS: NICOTINE 14MG/24 HR PATCH.TD24 TD SCH (08:37)
[2020-07-12] MEDS ORDERED: NICO-486 TD (12:40)
[2020-07-12] MEDS ORDERED: DIVA500T4 PO (12:40)
[2020-07-12] MEDS ORDERED: DIVA250T PO (12:40)
[2020-07-12] MEDS ORDERED: GABA-826 PO (12:40)
[2020-07-12] MEDS ORDERED: OLAN10TA9 PO (12:40)
[2020-07-12] MEDS ORDERED: MELA3TAB31 PO (12:40)
[2020-07-12] MEDS ORDERED: CETI10TA18 PO (12:40)
[2020-07-12] MEDS ORDERED: BENZ1TAB61 PO (12:40)
[2020-07-12] MEDS ORDERED: ATOR20TA37 PO (12:40)
[2020-07-12] MEDS ORDERED: LEVO75TA PO (12:40)
== END 2020-07-12 14:30 | disposition home or self-care (01) | DRG 885 ==
LOC: 3E 06-14 01:40
PROVIDERS: ADMIT Psychiatry & Neurology Psychosomatic Medicine; ATTEND Psychiatry & Neurology Psychosomatic Medicine
DX: F25.1 Schizoaffective disorder, depressive type (principal); R45.851 Suicidal ideations; F09 Unspecified mental disorder due to known physiological condition; G89.29 Other chronic pain; E78.5 Hyperlipidemia, unspecified; I25.10 Atherosclerotic heart disease of native coronary artery without angina pectoris; N18.30 Chronic kidney disease, stage 3 unspecified; E03.9 Hypothyroidism, unspecified; F17.210 Nicotine dependence, cigarettes, uncomplicated; F41.9 Anxiety disorder, unspecified; G40.909 Epilepsy, unspecified, not intractable, without status epilepticus; G62.9 Polyneuropathy, unspecified; G47.00 Insomnia, unspecified; J44.9 Chronic obstructive pulmonary disease, unspecified; Z82.49 Family history of ischemic heart disease and other diseases of the circulatory system; Z79.899 Other long term (current) drug therapy; Z88.0 Allergy status to penicillin; Z88.8 Allergy status to other drugs, medicaments and biological substances
CPT/HCPCS: 36415; 80048; 80053; 80061; 81003; 82550; 82607; 84439; 84443; 84484; 85025; 85379; 93005; 94640

== ENCOUNTER 2020-10-04 19:40 | Emergency (ER) | payer MEDICARE, MEDICAID ==
[~2020-10-04] VITALS: Ht 162.6 cm; Wt 78.8 kg
[~2020-10-04 19:40] MED LIST changes: +ATOR20TA37 PO; +CETI10TA18 PO; +GABA-826 PO; +MELA3TAB31 PO; +OLAN10VI PO
[2020-10-04 19:55] VITALS: BP 167/102
--- NOTE | 2020-10-04 23:27 | NUR ---
patient left. signed AMA.
== END 2020-10-04 23:38 | disposition left against medical advice (07) ==
LOC: ED 20:20
DX: F32.9 Major depressive disorder, single episode, unspecified (principal); Z53.21 Procedure and treatment not carried out due to patient leaving prior to being seen by health care provider

== ENCOUNTER 2020-10-27 19:16 | Emergency (ER) | payer MEDICARE, MEDICAID ==
[~2020-10-27] VITALS: Ht 167.6 cm; Wt 77.5 kg
[2020-10-27 19:19] VITALS: BP 151/76
--- NOTE | 2020-10-27 19:50 | NUR ---
PT. TO ROOM 40 FOR SI SECURITY AT THIS TIME. PT. HAD BEEN SITTING ON WALL IN DIRECT VIEW OF UPPER AND BOTTOM LACER HAND PRIOR TO GOING TO ROOM.
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
[2020-10-27 20:05] LABS: BASOPHILS % (AUTO) 2 % (0-1); EOSINOPHILS % (AUTO) 3 % (1-7); LYMPHOCYTES % (AUTO) 28 % (22-44); MEAN CORPUSCULAR HEMOGLOBIN 31.8 pg (27.0-34.8); MEAN PLATELET VOLUME 7.3 fL (7.4-10.4); MONOCYTES % (AUTO) 15 % (2-9); NEUTROPHILS % (AUTO) 52 % (42-75); PLATELET COUNT 184 x10^3/uL (130-400); RED BLOOD COUNT 4.67 x10^6/uL (3.82-5.3); RED CELL DISTRIBUTION WIDTH 14.4 % (9.6-15.2)
--- NOTE | 2020-10-27 20:14 | NUR ---
DR. NJ IN TO EVAL PT. AND DISCUSS POC.
[2020-10-27 20:15] LABS: ALANINE AMINOTRANSFERASE 17 U/L (12-78); ALBUMIN 3.2 g/dL (3.4-5.0); ANION GAP 7 mmol/L (5-15); CHLORIDE 106 mmol/L (98-107); CREATININE 1.09 mg/dL (0.55-1.02); SALICYLATE LEVEL 3.4 mg/dL (2.8-20.0)
[2020-10-27 20:17] LABS: ALKALINE PHOSPHATASE 94 U/L (45-117); BILIRUBIN,TOTAL 0.4 mg/dL (0.2-1.0); TOTAL PROTEIN 6.8 g/dL (6.4-8.2)
--- NOTE | 2020-10-27 20:28 | NUR ---
PT. AMBULATORY TO BR WITH STEADY GAIT TO PROVIDE URINE SAMPLE. SAMPLE SENT TO LAB.
[2020-10-27 20:57] LABS: AMPHETAMINE SCREEN, URINE Negative (Negative); BARBITURATE SCREEN, URINE Negative (Negative); BENZODIAZEPINE SCREEN, URINE Negative (Negative); CANNABINOID SCREEN, URINE Negative (Negative); COCAINE SCREEN, URINE Negative (Negative); METHADONE SCREEN, URINE Negative (Negative); OPIATE SCREEN, URINE Negative (Negative)
--- NOTE | 2020-10-27 22:24 | NUR ---
PT. RESTING ON GURNEY WITH NO DISTRESS NOTED. EYES CLOSED. REPIRATIONS VISIBLE AND NON-LABORED. ROOM SECURED. ALL SAFETY MEASURES OBSERVED. SECURITY DID COME BY TO COLLECT PT. SECURE ITEMS; PAPER PLACED ON CHART.
--- NOTE | 2020-10-27 23:03 | NUR ---
THROUGHPUT RN: PT PACKET FAXED TO [facility].
--- NOTE | 2020-10-28 | NUR ---
REPORT TO JULIETA KHAN AT [facility]: THEY ARE LOOKING FUTHER INTO PT. TO DETERMINE IF PT. CAN BE ADMITTED.
--- NOTE | 2020-10-28 00:08 | NUR ---
PT. CONTINUES RESTING ON GURNEY WITH EYES CLOSED. RESPIRATIONS VISIBLE AND NON-LABORED. ALL SAFETY MEASURES MAINTAINED.
--- NOTE | 2020-10-28 00:16 | NUR ---
THROUGHPUT RN: [facility] ACCEPTING, [facility], [facility].. REQ TRANSFER 0200AM
--- NOTE | 2020-10-28 01:03 | NUR ---
BEDSIDE REPORT FROM MELANIA RENDON, PT CARE TRANSFERRED AT THIS TIME. PT CONTINUES TO REST WITH EYES CLOSED, LAYING ON LEFT SIDE, EVEN AND UNLABORED RESPIRATIONS NOTED. VSS. PT NAD. RAILS ENGAGED, BED IN LOWEST, ROOM SECURED, LIGHTS DIMMED FOR COMFORT AND PT PROVIDED WARM BLANKETS FOR COMFORT. WCTM. WAITING FOR EMS TRANSFER AT 0130
--- NOTE | 2020-10-28 02:07 | NUR ---
Break RN: patient sleeping in [facility]. Respirations even and unlabored. Belongings locked in cabinet and room secured.
== END 2020-10-28 02:32 ==
LOC: ED 21:09
DX: R45.851 Suicidal ideations (principal); F33.9 Major depressive disorder, recurrent, unspecified; I10 Essential (primary) hypertension; E11.9 Type 2 diabetes mellitus without complications; K21.9 Gastro-esophageal reflux disease without esophagitis; J44.9 Chronic obstructive pulmonary disease, unspecified; E03.9 Hypothyroidism, unspecified; F25.9 Schizoaffective disorder, unspecified
CPT/HCPCS: 36415; 80053; 80299; 80307; 80320; 80329; 84443; 85025; 99285; G0480

== ENCOUNTER 2021-01-10 18:58 | Emergency (ER) | payer MEDICARE, MEDICAID ==
[~2021-01-10] VITALS: Ht 157.5 cm; Wt 68.0 kg
[~2021-01-10 18:58] MED LIST changes: +OLAN10TA69 PO; -OLAN10TA9 PO; +OLAN5TAB69 PO; -OLAN5TAB9 PO
[2021-01-10] MEDS ORDERED: FAMOTIDINE 20 MG TABLET ONE (19:25)
[2021-01-10] MEDS ORDERED: MAALOX/HYOSCYAMINE/LIDOCAINE 45 ML BTL ONE (19:25)
--- NOTE | 2021-01-10 19:27 | NUR ---
PT BIB [facility] FOR CHEST PAIN. 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 PT DESCRIBES PAIN BURINING AND RADIATES TO BACK. NO INTERVENTIONS IN ROUTE. VSS. PT CONNECTED TO VITAL MACHINE. EKG OBTAINED. PT RESTING COMFORTABLY
--- NOTE | 2021-01-10 19:28 | NUR ---
LAB AT BEDSIDE
[2021-01-10] MEDS ORDERED: FAMOTIDINE 20 MG TABLET PO ONE (19:30)
[2021-01-10] MEDS ORDERED: MAALOX/HYOSCYAMINE/LIDOCAINE 45 ML BTL PO ONE (19:30)
[2021-01-10 19:45] LABS: BASOPHILS % (AUTO) 2 % (0-1); EOSINOPHILS % (AUTO) 2 % (1-7); LYMPHOCYTES % (AUTO) 25 % (22-44); MEAN CORPUSCULAR HEMOGLOBIN 32.2 pg (27.0-34.8); MEAN CORPUSCULAR HGB CONC 34.5 g/dL (32.4-35.8); MONOCYTES % (AUTO) 15 % (2-9); NEUTROPHILS % (AUTO) 57 % (42-75); PLATELET COUNT 160 x10^3/uL (130-400); RED BLOOD COUNT 4.45 x10^6/uL (3.82-5.3); RED CELL DISTRIBUTION WIDTH 15.3 % (9.6-15.2)
[2021-01-10 19:47] LABS: ANION GAP 6 mmol/L (5-15); CALCIUM 8.8 mg/dL (8.5-10.1); CHLORIDE 108 mmol/L (98-107); CREATININE 1.08 mg/dL (0.55-1.02)
[2021-01-10 19:51] LABS: TROPONIN I < 0.015 ng/mL (0.000-0.045)
[2021-01-10 20:32] VITALS: BP 149/86
== END 2021-01-10 20:34 | disposition home or self-care (01) ==
LOC: ED 19:24
DX: R07.89 Other chest pain (principal); F41.1 Generalized anxiety disorder; I10 Essential (primary) hypertension; I25.10 Atherosclerotic heart disease of native coronary artery without angina pectoris; E11.40 Type 2 diabetes mellitus with diabetic neuropathy, unspecified; J44.9 Chronic obstructive pulmonary disease, unspecified; E11.21 Type 2 diabetes mellitus with diabetic nephropathy; Z87.891 Personal history of nicotine dependence
CPT/HCPCS: 36415; 80048; 84484; 85025; 93005; 99284